=== PATIENT | male | born 1975 | race Caucasian/White ===

== ENCOUNTER → 2017-06-30 | Outpatient (REF) ==
[~2017-06-30] MED LIST: AVEED IM; CARDI-OMEGA1000 MG PO; CO Q-1010 MG PO; DEPO-TESTOS200 MG/ML IM; METFORMIN XR500 MG PO; MULTIPLE VITAMI1 CAP PO; NORCO 325 MG-7.1 TAB PO; NORTRIPTYLINE25 MG PO; OMEPRAZOLE D/R20 MG PO; PAMELOR 10MG10 MG PO; PAMELOR PO; PHENERGAN 25 TA25 MG; PHENTERMINE H37.5 M1 PO; PRILOSEC 20MG20 MG PO; PRINZIDE 12.5 M1 TAB PO; PROZAC10 M1 PO; TESTOSTERON200 MG/ML IM; TRAZODONE50 MG PO; TRILIPIX 135MG PO; VITAMIN D1000 IU PO; VYTORIN 10 MG-21 TAB PO; WELCHOL 625MG625 MG PO; ZITHROMAX Z PA250 MG PO; ZOCOR 20MG20 MG PO
== END ==
LOC: WSOH 16:30
DX: Z02.89 Encounter for other administrative examinations (principal)

== ENCOUNTER → 2017-07-13 | Outpatient (CLI) | payer OTHER | LOC: MHCPAIN 15:47 | DX: G89.29 Other chronic pain (principal); M47.22 Other spondylosis with radiculopathy, cervical region; R51 Headache | CPT/HCPCS: G0463 ==

== ENCOUNTER → 2017-07-15 | Outpatient (CLI) | payer OTHER | LOC: MHCPAIN 07:32 | DX: M50.323 Other cervical disc degeneration at C6-C7 level (principal); M48.02 Spinal stenosis, cervical region | CPT/HCPCS: J1100; Q9967 ==

== ENCOUNTER → 2017-07-26 | Outpatient (CLI) | payer OTHER | LOC: MHCPAIN 12:36 | DX: G89.29 Other chronic pain (principal); M50.123 Cervical disc disorder at C6-C7 level with radiculopathy | CPT/HCPCS: G0463 ==

== ENCOUNTER → 2018-07-06 | Outpatient (CLI) | payer OTHER | LOC: MHCPAIN 07:51 | DX: G89.29 Other chronic pain (principal); M50.90 Cervical disc disorder, unspecified, unspecified cervical region; M54.12 Radiculopathy, cervical region | CPT/HCPCS: G0463 ==

== ENCOUNTER → 2018-07-28 | Outpatient (CLI) | payer OTHER | LOC: MHCPAIN 15:20 | DX: M54.12 Radiculopathy, cervical region (principal); M50.90 Cervical disc disorder, unspecified, unspecified cervical region | CPT/HCPCS: J1100; J2250; J3010; Q9967 ==

== ENCOUNTER 2019-09-21 12:20 | Day surgery (SDC) | payer OTHER ==
[~2019-09-21] VITALS: Ht 170.3 cm; Wt 111.0 kg
[2019-09-21] VITALS (15 sets, daily range): BP systolic 110–146; BP diastolic 66–711; PULSE 82–104; TEMP 98.3
[~2019-09-21 12:20] MED LIST changes: -AVEED IM; +BRINTELLIX5; +DEPO-TESTOS200 MG/M1 IM; +FLEXERIL 1010 MG/TAB PO
--- NOTE | 2019-09-21 12:20 | NUR ---
Pt to EU 14 per ambulation for chest pain. Pt reports pain /10. Dr. Rae in room to assess pt. O2 2L per NC placed on pt for comfort.
[2019-09-21 12:56] LABS: MEAN CELL VOLUME 88 fl (80.0-100.0); MEAN CORPUSCULAR HGB CONC 35 g/dl (33.0-37.0); MEAN PLATELET VOLUME 8.5 fl (7.4-10.4); PLATELET COUNT 240 K/mm3 (130-400); RED BLOOD COUNT 6.15 M/mm3 (4.20-5.60); REDCELL DISTRIBUTION WIDTH-CV 14.1 % (11.5-14.5)
[2019-09-21 13:07] LABS: HEMATOCRIT 54.2 % (42.0-52.0); HEMOGLOBIN 19.2 g/dl (13.5-18.0); MEAN CORPUSCULAR HEMOGLOBIN 31 pg (27.0-31.0)
[2019-09-21 13:08] LABS: ANION GAP 11 mmol/L (7-16); BLOOD UREA NITROGEN 10 mg/dL (9-20); CALCIUM 9.3 mg/dL (8.4-10.2); CARBON DIOXIDE 28 mmol/L (22-30); CHLORIDE 101 mmol/L (98-107); CREATININE, serum 0.95 (0.66-1.25); GLUCOSE 92 mg/dL (74-106); SODIUM 139 mmol/L (137-145)
--- NOTE | 2019-09-21 13:20 | NUR ---
Pt reports chest pain relieved some with Oxygen. Pt reports chest pain 3/10.
[2019-09-21] MEDS ORDERED: PROZAC 10MG10 MG PO (13:21)
[2019-09-21] MEDS ORDERED: VITAMIN D31000 I1 PO (13:22)
[2019-09-21] MEDS ORDERED: NEURONTIN300 MG/CAP PO (13:24)
[2019-09-21 13:28] LABS: INR 0.9 (0.8-3.0); PROTHROMBIN TIME 10.8 SECONDS (9.7-12.8)
--- NOTE | 2019-09-21 13:50 | NUR ---
Pt reports chest pain came back when he walked to the bathroom. Reports pain 4/10.
[2019-09-21 14:13] LABS: TROPONIN-I < 0.012 ng/mL (0.000-0.035)
--- NOTE | 2019-09-21 14:54 | NUR ---
Pt chest pain increased to 5/10 with ambulation to bathroom. Nitro given.
--- NOTE | 2019-09-21 15:40 | NUR ---
Pt to labor service representative per bed for heart cath with Ivett Dudley RN.
--- NOTE | 2019-09-21 16:00 | NUR ---
SEE MERGE DOCUMENTATION FOR MEDICATION ADMINISTRATION TIMES AND INTRA/POST PROCEDURE SEDATION ASSESSMENTS. PLAN FOR RIGHT RADIAL ACCESS; BARBEAU TEST POSITIVE TO RIGHT HAND. MD TO ENTER H&P PRIOR TO CASE START.
--- NOTE | 2019-09-21 16:46 | NUR ---
Pt returned from procedure at this time.
--- NOTE | 2019-09-21 16:51 | NUR ---
Pt transferred back to express unit from cathlab, pt is awake and alert, p,w,d, TR band to rt wrist with 14 ml air instilled at approx 1640. cms intact distal, no hematoma or bleeding observed. pt with cardiac monitoring during recovery ... family at bs. heart healthy diet ordered.
--- NOTE | 2019-09-21 17:55 | NUR ---
1 CC REMOVED FROM TR BAND, NO BLEEDING OR HEMATOMA.
--- NOTE | 2019-09-21 19:15 | NUR ---
Radial compression band removed from R wrist cath site. Site remains soft, C/D/I, covered with bandaid and gauze and wrapped with coban. Pt has ambulated and ana PO intake s n/v. PIV removed with catheter intact.
--- NOTE | 2019-09-21 19:39 | NUR ---
Pt discharged per w/c by nurse with .
== END 2019-09-21 19:39 | disposition home or self-care (01) ==
LOC: COL.CAR 12:20
PROVIDERS: Internal Medicine Interventional Cardiology
DX: R07.9 Chest pain, unspecified (principal); R94.39 Abnormal result of other cardiovascular function study; Z90.49 Acquired absence of other specified parts of digestive tract; Z87.891 Personal history of nicotine dependence; Z88.5 Allergy status to narcotic agent
CPT/HCPCS: J1644; J2250; J3010; Q9967

== ENCOUNTER 2020-04-07 18:29 | Emergency (ER) | payer OTHER ==
[~2020-04-07] VITALS: Ht 170.2 cm; Wt 111.4 kg
[~2020-04-07 18:29] MED LIST changes: +NEURONTIN300 MG/CAP PO; +PROZAC 10MG10 MG PO; +VITAMIN D31000 I1 PO
[2020-04-07] MEDS ORDERED: CEPHALEXIN500 M1 PO (19:18)
[2020-04-07 19:29] VITALS: BP 154/74; PULSE 78; TEMP 97.8
== END 2020-04-07 19:24 | disposition home or self-care (01) ==
LOC: COL.ER 18:29
DX: S61.231A Puncture wound without foreign body of left index finger without damage to nail, initial encounter (principal); I10 Essential (primary) hypertension; Z23 Encounter for immunization; Z90.49 Acquired absence of other specified parts of digestive tract; Z88.6 Allergy status to analgesic agent; W26.0XXA Contact with knife, initial encounter

== ENCOUNTER → 2021-09-01 | Outpatient (CLI) | payer BC ==
[~2021-09-01] MED LIST changes: +CEPHALEXIN500 M1 PO
[2021-09-01 14:33] LABS: BASO % 0.6 % (0.0-2.0); EOS # 0.1 K/mm3 (0.0-0.7); EOS % 1.9 % (0-4.0); GRAN # 4.2 K/mm3 (1.4-6.5); GRAN % 60.9 % (42.2-75.2); LYMPH # 1.9 K/mm3 (1.2-3.4); LYMPH % 27.1 % (20.0-51.0); MEAN CELL VOLUME 89 fl (80.0-100.0); MEAN CORPUSCULAR HEMOGLOBIN 30 pg (27.0-31.0); MEAN CORPUSCULAR HGB CONC 33 g/dl (33.0-37.0); MONO # 0.7 K/mm3 (0.1-0.6); MONO % 9.4 % (1.7-9.3); PLATELET COUNT 227 K/mm3 (130-400); RED BLOOD COUNT 6.08 M/mm3 (4.20-5.60); REDCELL DISTRIBUTION WIDTH-CV 14.6 % (11.5-14.5)
[2021-09-01 14:35] LABS: HEMATOCRIT 54.1 % (42.0-52.0)
[2021-09-01 15:08] LABS: THYROID STIMULATING HORMONE 0.852 uIU/mL (0.350-4.940)
[2021-09-01 15:15] LABS: TROPONIN-I < 0.010 ng/mL (0.00-0.033)
[2021-09-01 15:23] LABS: ERYTHROCYTE SEDIMENTATION RATE 1 mm/hr (0-15)
[2021-09-01 15:53] LABS: C-REACTIVE PROTEIN 0.49 mg/dL (0.00-0.50)
== END ==
LOC: COL.LAB 13:35
PROVIDERS: Family Medicine
DX: T50.B95A Adverse effect of other viral vaccines, initial encounter (principal); I20.9 Angina pectoris, unspecified

== ENCOUNTER → 2021-09-02 | Outpatient (CLI) | payer BC | LOC: COL.LAB 08:12 | DX: T50.B9 Poisoning by, adverse effect of and underdosing of other viral vaccines (principal) ==

== ENCOUNTER 2021-10-08 22:43 | Day surgery (SDC) | payer BC ==
[~2021-10-08] VITALS: Ht 170.3 cm; Wt 112.7 kg
[2021-10-08 23:44] LABS: BASO # 0.1 K/mm3 (0.0-0.2); BASO % 0.5 % (0.0-2.0); EOS # 0.2 K/mm3 (0.0-0.7); EOS % 2.2 % (0.0-4.0); GRAN # 5.9 K/mm3 (1.4-6.5); GRAN % 63.9 % (42.2-75.2); HEMATOCRIT 51.2 % (42.0-52.0); HEMOGLOBIN 17.9 g/dl (13.5-18.0); LYMPH # 2.2 K/mm3 (1.2-3.4); LYMPH % 23.9 % (20.0-51.0); MEAN CELL VOLUME 85 fl (80.0-100.0); MEAN CORPUSCULAR HEMOGLOBIN 30 pg (27-31); MEAN CORPUSCULAR HGB CONC 35 g/dl (33.0-37.0); MONO # 0.8 K/mm3 (0.1-0.6); MONO % 8.6 % (1.7-9.3); PLATELET COUNT 299 K/mm3 (130-400); RED BLOOD COUNT 6.03 M/mm3 (4.20-5.60); REDCELL DISTRIBUTION WIDTH-CV 14.8 % (11.5-14.5)
[2021-10-09] VITALS (7 sets, daily range): BP systolic 115–134; BP diastolic 65–85; PULSE 69–89; TEMP 97.5–98.3
[2021-10-09 00:03] LABS: ALBUMIN 4.3 gm/dL (3.5-5.0); BILIRUBIN,TOTAL 1.1 mg/dL (0.2-1.2); C-REACTIVE PROTEIN 0.14 mg/dL (0.00-0.50); CALCIUM 9.4 mg/dL (8.4-10.2); CREATININE, serum 1.05 mg/dL (0.72-1.25); POTASSIUM 3.9 mmol/L (3.5-4.5); TOTAL PROTEIN 7.5 gm/dL (6.2-8.1)
[2021-10-09 01:11] LABS: COLLECTION METHOD CLEAN CATCH
[2021-10-09 01:24] LABS: BUDDING YEAST Present (NOT PRESENT); MUCOUS Present (NOT PRESENT); PH 6 (5-8); SQUAMOUS EPITHELIAL None Seen /hpf (0-10); URINE APPEARANCE Cloudy (CLEAR/HAZY); URINE BACTERIA None Seen /hpf (NONE SEEN); URINE BILIRUBIN Negative (NEGATIVE); URINE BLOOD 3+ (NEGATIVE); URINE CALCIUM OXALATE CRYSTAL Present (NOT PRESENT); URINE COLOR Amber (YELLOW); URINE GLUCOSE 1+ (NEGATIVE); URINE KETONE Trace (NEGATIVE); URINE LEUKOCYTE ESTERASE Negative (NEGATIVE); URINE NITRATE Positive (NEGATIVE); URINE PROTEIN(semi-quant) 2+ (NEGATIVE); URINE RBC >50 /hpf (0-2); URINE UROBILINOGEN Negative (NEGATIVE)
--- NOTE | 2021-10-09 10:12 | NUR ---
Ice Seller met with patient and patient's , Addie (ph#[phone]) to discuss discharge planning. Patient lives in [place] with his and sees Dr. Arnaldo Hook for primary care. Patient obtains medications from [facility] with no difficulties. Patient uses a CPAP and no other DME and also reports independence with all ADLS. Patient advised he believes he completed a DPOA-HC designating his parents when he got , but plans to re-do one now that he is to his current . Patient plans to return home upon discharge.
[2021-10-09] MEDS ORDERED: PRINZIDE 25 MG-1 TAB PO (10:43)
[2021-10-09] MEDS ORDERED: FLEXERIL 1010 MG/TAB PO (10:43)
[2021-10-09] MEDS ORDERED: GLUCOPHAGE500 MG/TAB PO (10:44)
[2021-10-09] MEDS ORDERED: MULTI VITAMINS1 TAB PO (10:45)
[2021-10-09] MEDS ORDERED: THE MEDICINE S200 M2 PO (10:45)
[2021-10-09] MEDS ORDERED: PHARMASSURE CHE30 MG PO (10:47)
[2021-10-09] MEDS ORDERED: OMEGA-3 1000 MG1 CAP PO (10:47)
[2021-10-09] MEDS ORDERED: VITAMIN D31000 I1 PO (10:48)
[2021-10-09] MEDS ORDERED: NORCO 325 MG-51 TAB PO (18:14)
--- NOTE | 2021-10-09 18:45 | NUR ---
RECEIVED REPORT FROM THIRD HAND, JEWELS. WAITING FOR PATIENT ARRIVAL TO ROOM 332 POST OP ADMIT, ANTICIPATE HOME IF CRITERIA MET FOR POST OP RECOVERY.
--- NOTE | 2021-10-09 19:00 | NUR ---
PATIENT ARRIVED TO ROOM 332, IMMEDIATELY VOIDING IN BATHROOM. ALREADY IN ROOM WAITING FOR PATIENT TO ARRIVE POST OP. PATIENT UP AMB WITH NO REPORTED COMPLAINTS OR NEEDS CURRENTLY. REPORTS FEELS BETTER AFTER VOIDING LARGE AMOUNT DULL RED TINGED URINE, NO CLOTS OBSERVED. DENIES NAUSEA AT THIS TIME.
--- NOTE | 2021-10-09 20:50 | NUR ---
REVIEWED DISCHARGE INSTRUCTIONS WITH NO FURTHER QUESTIONS OR CONCERNS FROM EITHER PATIENT OR SPOUSE.
[2021-10-12] MEDS ORDERED: FLOMAX 0.40.4 MG/CAP PO (13:18)
[2021-10-12] MEDS ORDERED: PYRIDIUM 100MG100 MG PO (13:19)
[2021-10-12] MEDS ORDERED: NORCO 325 MG-51 TAB PO (13:19)
== END 2021-10-09 21:00 | disposition home or self-care (01) ==
LOC: COL.ER 22:43 → SDCO 10-09 11:29 → SURG 10-09 19:18 → SDCO 10-09 21:00
PROVIDERS: Physician Assistant
DX: N20.1 Calculus of ureter (principal); I10 Essential (primary) hypertension; E78.5 Hyperlipidemia, unspecified; G47.33 Obstructive sleep apnea (adult) (pediatric); Z79.899 Other long term (current) drug therapy
CPT/HCPCS: OP; C1769; C1894; J0696; J1100; J1170; J1885; J1940; J2405; J2704; J3010; J7030; Q9967

== ENCOUNTER → 2021-10-24 | Outpatient (CLI) | payer BC ==
[~2021-10-24] MED LIST changes: +FLOMAX 0.40.4 MG/CAP PO; +GLUCOPHAGE500 MG/TAB PO; +MULTI VITAMINS1 TAB PO; +NORCO 325 MG-51 TAB PO; +OMEGA-3 1000 MG1 CAP PO; +PHARMASSURE CHE30 MG PO; +PRINZIDE 25 MG-1 TAB PO; +PYRIDIUM 100MG100 MG PO; +THE MEDICINE S200 M2 PO
== END ==
LOC: COL.RAD 07:29
DX: N20.0 Calculus of kidney (principal); N13.5 Crossing vessel and stricture of ureter without hydronephrosis
CPT/HCPCS: Q9967

== ENCOUNTER 2022-03-11 22:15 | Emergency (ER) | payer BC ==
[~2022-03-11] VITALS: Ht 170.2 cm; Wt 111.4 kg
[2022-03-12 01:20] VITALS: BP 111/67; PULSE 93; TEMP 98.9
[2022-03-12 03:54] LABS: ALBUMIN 3.4 gm/dL (3.5-5.0); BASO % 0.4 % (0.0-2.0); BILIRUBIN,TOTAL 0.5 mg/dL (0.2-1.2); C-REACTIVE PROTEIN 1.2 mg/dL (0.00-0.50); CALCIUM 8.1 mg/dL (8.4-10.2); CREATININE, serum 0.93 mg/dL (0.72-1.25); EOS # 0.3 K/mm3 (0.0-0.7); EOS % 3.4 % (0.0-4.0); GRAN # 4.9 K/mm3 (1.4-6.5); GRAN % 61.3 % (42.2-75.2); HEMATOCRIT 49.6 % (42.0-52.0); HEMOGLOBIN 16.5 g/dl (13.5-18.0); LYMPH # 1.9 K/mm3 (1.2-3.4); LYMPH % 23.5 % (20.0-51.0); MEAN CELL VOLUME 89 fl (80.0-100.0); MEAN CORPUSCULAR HEMOGLOBIN 30 pg (27-31); MEAN CORPUSCULAR HGB CONC 33 g/dl (33.0-37.0); MEAN PLATELET VOLUME 9.1 fl (7.4-10.4); MONO # 0.9 K/mm3 (0.1-0.6); MONO % 11.2 % (1.7-9.3); PLATELET COUNT 211 K/mm3 (130-400); POTASSIUM 3.5 mmol/L (3.5-4.5); RED BLOOD COUNT 5.55 M/mm3 (4.20-5.60); REDCELL DISTRIBUTION WIDTH-CV 13.7 % (11.5-14.5); TOTAL PROTEIN 6.9 gm/dL (6.2-8.1)
== END 2022-03-12 01:20 | disposition home or self-care (01) ==
LOC: COL.ER 22:15
PROVIDERS: Emergency Medicine
DX: L02.212 Cutaneous abscess of back [any part, except buttock and flank] (principal); U07.1 COVID-19; Z73.0 Burn-out; R00.0 Tachycardia, unspecified; E66.9 Obesity, unspecified; Z68.38 Body mass index [BMI] 38.0-38.9, adult
CPT/HCPCS: J0696; J1885; J3010; J7030

== ENCOUNTER 2023-10-15 13:00 | Inpatient (IN) | payer OTHER ==
[~2023-10-15] VITALS: Ht 170.2 cm; Wt 115.0 kg
[2023-10-15 13:00] VITALS: BP_SYST 132
[~2023-10-15 13:00] MED LIST changes: +ATIVAN 1MG T1 MG/TAB PO; +CIALIS2.5 MG PO; +DELATESTRYL200 MG/ML IM; +INDERAL 20MG20 MG PO; +JARDIANCE25 PO; +LOVAZA1 GM PO; +NEURONTIN100 MG/CAP PO; +PHARMASSURE ZIN50 MG PO; +PHENERGAN 25 TA25 MG PO; +PRINZIDE 12.5 M1 TA1 PO; +REQUIP2 MG PO; +TRILIPIX45 MG PO
[2023-10-15] MEDS ORDERED: Ondansetron 4 MG/2 ML VIAL IV ONE (14:15)
[2023-10-15] MEDS ORDERED: HYDROmorphone 0.5 MG/0.5 ML SYRINGE IV ONE ×2 (14:15→15:15)
[2023-10-15 14:32] LABS: BASO # 0.1 K/mm3 (0.0-0.2); BASO % 0.4 % (0.0-2.0); EOS # 0.2 K/mm3 (0.0-0.7); EOS % 1.6 % (0.0-4.0); GRAN % 78.6 % (42.2-75.2); LYMPH # 1.1 K/mm3 (1.2-3.4); LYMPH % 9.5 % (20.0-51.0); MEAN CELL VOLUME 87 fl (80.0-100.0); MEAN CORPUSCULAR HGB CONC 36 g/dl (33.0-37.0); MEAN PLATELET VOLUME 8.9 fl (7.4-10.4); MONO # 1.1 K/mm3 (0.1-0.6); MONO % 9.5 % (1.7-9.3); PLATELET COUNT 261 K/mm3 (130-400); RED BLOOD COUNT 6.11 M/mm3 (4.20-5.60); REDCELL DISTRIBUTION WIDTH-CV 15.9 % (11.5-14.5)
[2023-10-15 14:34] LABS: HEMATOCRIT 53.3 % (42.0-52.0); HEMOGLOBIN 19.1 g/dl (13.5-18.0); MEAN CORPUSCULAR HEMOGLOBIN 31 pg (27-31)
[2023-10-15 14:48] LABS: ALBUMIN 4.4 gm/dL (3.5-5.0); BILIRUBIN,TOTAL 1.3 mg/dL (0.2-1.2); CALCIUM 9.8 mg/dL (8.4-10.2); CREATININE, serum 0.91 mg/dL (0.72-1.25); POTASSIUM 3.5 mmol/L (3.5-4.5); TOTAL PROTEIN 7.6 gm/dL (6.2-8.1)
[2023-10-15 16:00] VITALS: BP 135/73; PULSE 113; TEMP 98.3
--- NOTE | 2023-10-15 16:25 | NUR ---
pt admitted to room from ED. pt a&ox3 resting in bed. vss. NG tube to intermittent suction. med rec and admission assessment complete. pt reports some abdominal pain and nausea. INT to right hand patent. pt denies needs at this time. call light in reach.
[2023-10-15 17:13] VITALS: BP_SYST 132
[2023-10-15] MEDS ORDERED: Promethazine 25 MG in NS 50 ML IV PRN (17:45)
[2023-10-15] MEDS ORDERED: HYDROmorphone 0.5 MG/0.5 ML SYRINGE IV PRN (17:45)
[2023-10-15] MEDS ORDERED: Ondansetron 4 MG/2 ML VIAL IV PRN (17:45)
[2023-10-15] MEDS ORDERED: LORazepam 2 MG/ML 1 ML VIAL IV PRN (17:45)
[2023-10-15] MEDS ORDERED: 1/2 NS & 20 mEq KCl 1,000 ML IV SCH (18:00)
[2023-10-15 20:00] VITALS: BP 115/76; PULSE 108; TEMP 97.8
[2023-10-15 21:00] VITALS: BP_SYST 115
--- NOTE | 2023-10-15 21:30 | NUR ---
Patient reports his NG TUBE doesn't seem to work, this nurse checked the suction, changed the valve/port connecting to the suction tube but patient still complained and no gastric drainage coming out of the tube, informed charge nurse, charge nurse at bedside, we flushed the tube and gastric contents started coming out, will continue to monitor. Patient also complained of pain and nausea, medicated with IV phenergan and dilaudid, assessed at this time, call light and personal items within reach, will continue to monitor.
[2023-10-15 23:37] VITALS: BP 143/85; PULSE 100; TEMP 97.7
--- NOTE | 2023-10-15 23:49 | NUR ---
Oxygen at 2LPM at this time d/t his NG tube, patient normally uses CPAP at home.
[2023-10-16] VITALS (11 sets, daily range): BP systolic 107–143; BP diastolic 66–86; PULSE 90–93; TEMP 97.9–98.5
--- NOTE | 2023-10-16 01:09 | NUR ---
Patient complained of pain, PS of 8/10, medicated with dilaudid, ice chips given.
--- NOTE | 2023-10-16 03:45 | NUR ---
Patient called with complains of abdominal pain, PS of 8/10, medicated with dilaudid, NG tube still to LIS.
[2023-10-16 08:28] LABS: HEMATOCRIT 47.8 % (42.0-52.0); MEAN CELL VOLUME 89 fl (80.0-100.0); MEAN CORPUSCULAR HEMOGLOBIN 31 pg (27-31); MEAN CORPUSCULAR HGB CONC 35 g/dl (33.0-37.0); MEAN PLATELET VOLUME 9.1 fl (7.4-10.4); PLATELET COUNT 217 K/mm3 (130-400); RED BLOOD COUNT 5.37 M/mm3 (4.20-5.60); REDCELL DISTRIBUTION WIDTH-CV 15.9 % (11.5-14.5)
[2023-10-16 08:43] LABS: HEMOGLOBIN 16.7 g/dl (13.5-18.0)
[2023-10-16 08:53] LABS: CALCIUM 8.4 mg/dL (8.4-10.2); CREATININE, serum 0.85 mg/dL (0.72-1.25); MAGNESIUM 1.7 mg/dL (1.6-2.6); POTASSIUM 3.4 mmol/L (3.5-4.5)
[2023-10-16 09:20] LABS: ANISOCYTOSIS 1+; BAND 20 % (0-10); BASOPHIL 1 % (0-2); EOSINOPHIL 6 % (0-4); LYMPHOCYTE 36 % (20.0-51.0); METAMYELOCYTE 3 % (0-0); NEUTROPHILS 14 % (42.0-75.2); PLATELET ESTIMATE NORMAL (NORMAL)
--- NOTE | 2023-10-16 11:29 | NUR ---
SW met with patient to complete to complete intake. Patient provides he lives in [place] with spouse Maritza Drake [phone]. Patient provides he does not utilize DME, is independent with ADL's, and does not utilize home health services at this time. PCP is Dr. Hook, and pharmacy is [facility]. Patient provides parents have been appointment as DPOA/HC, and plans to return to his home upon dc. SCARLETT will continue to follow. DC plan per patient: home
--- NOTE | 2023-10-16 13:17 | NUR ---
Data: Mounter Clarinets visit offered to Patient during [facility] rounds. Assessment: Patient has a nasal drainage tube. He declined the M[facility] visit with some mention of the tube. Plan of Care: Chaplains will remain available as needed/requested while Patient is admitted to this hospital.
--- NOTE | 2023-10-16 19:10 | NUR ---
Patient called with c/o pain and nausea, PS of 7/10, medicated with dilaudid and zofran, assessed at this time, remains on NPO, still on NG tube to LIS, denies further needs, call light and personal items within reach, will continue to monitor.
[2023-10-17] VITALS (12 sets, daily range): BP systolic 121–158; BP diastolic 54–82; PULSE 78–90; TEMP 97.6–99.1
--- NOTE | 2023-10-17 07:35 | NUR ---
PATIENT SITTING UP IN BED. ALERT AND ORIENTED. NG ON LOW INT SUCTION. BROWN DRAINAGE NOTED IN CANISTER. HYPOACTIVE BOWEL SOUNDS NOTED. PATIENT STATES HE HAS BEEN PASSING FLATUS. PATIENT DENIES PAIN OR DISCOMFORT. PATIENT STATES HE WOULD LIKE TO TRY DRINKING APPLE JUICE AFTER SEEING DR. GABRIELLE CHU WITHIN REACH. DENIES FURTHER NEEDS OR CONCERNS AT THIS TIME.
[2023-10-17] MEDS ORDERED: HYDROmorphone 0.5 MG/0.5 ML SYRINGE IV PRN (10:15)
--- NOTE | 2023-10-17 12:10 | NUR ---
c/o pain 04/19, medicated wtih dilaudid 0.25mg slow IV, also c/o nausea and medicated with zofran 4mg slow IV, suction cannister changed and patient hooked his NG to tubing and suction to LIS, will monitor output from NG
--- NOTE | 2023-10-17 12:45 | NUR ---
PATIENT NG CONNECTED TO LOW INT SUCTION AT THIS TIME. NG HAS BEEN CLAMPED SINCE 0800 THIS AM.
--- NOTE | 2023-10-17 18:05 | NUR ---
PATIENT RESTING IN BED. NG IS CONNECTED TO LOW INT SUCTIONING. 700 ML OF DARK BROWN DRAINAGE NOTED IN CANISTER. PATIENT DENIES FURTHER NEEDS OR CONCERNS AT THIS TIME.
--- NOTE | 2023-10-17 22:03 | NUR ---
Patient complained of pain on his abdomen and nausea, PS of 7/10, IV dilaudid and phenergan given, still with NG tube to LIS draining coffee ground drainage, remains on NPO, IV infusing well on right hand, denies further needs, call light and personal items within reach, will continue to monitor.
[2023-10-18] VITALS (13 sets, daily range): BP systolic 133–152; BP diastolic 78–92; PULSE 74–92; TEMP 97.4–98.6
[2023-10-18 06:45] LABS: BASO % 0.4 % (0.0-2.0); EOS # 0.2 K/mm3 (0.0-0.7); EOS % 3.1 % (0.0-4.0); GRAN # 4.6 K/mm3 (1.4-6.5); GRAN % 60.3 % (42.2-75.2); HEMATOCRIT 45.6 % (42.0-52.0); HEMOGLOBIN 16.1 g/dl (13.5-18.0); LYMPH # 1.7 K/mm3 (1.2-3.4); LYMPH % 22.7 % (20.0-51.0); MEAN CELL VOLUME 88 fl (80.0-100.0); MEAN CORPUSCULAR HEMOGLOBIN 31 pg (27-31); MEAN CORPUSCULAR HGB CONC 35 g/dl (33.0-37.0); MEAN PLATELET VOLUME 8.4 fl (7.4-10.4); MONO % 12.7 % (1.7-9.3); PLATELET COUNT 209 K/mm3 (130-400); REDCELL DISTRIBUTION WIDTH-CV 14.8 % (11.5-14.5)
[2023-10-18 07:06] LABS: ALBUMIN 3.4 gm/dL (3.5-5.0); CALCIUM 8.6 mg/dL (8.4-10.2); CREATININE, serum 0.84 mg/dL (0.72-1.25); MAGNESIUM 1.8 mg/dL (1.6-2.6); PHOSPHOROUS 1.9 mg/dL (2.3-4.7); POTASSIUM 3.7 mmol/L (3.5-4.5)
--- NOTE | 2023-10-18 09:00 | NUR ---
Pt doing okay this morning. He has been getting up independently in his room. He did have a decent amount of output from his NG tube. Pt reports otherwise feeling okay, minimal to no pain. Bowel sounds are hypoactive to absent. Abd is soft at this time. No needs, call light within reach
[2023-10-18] MEDS ORDERED: Potassium Phoshate 20 MM in NS 250 ML For P Level 1.5-1.9 IV ONE ×2 (09:15→10:30)
--- NOTE | 2023-10-18 13:00 | NUR ---
Pt continues to do okay. NG has remained to LIS. Pt has been getting up and walking independently. Pt denies any needs
--- NOTE | 2023-10-18 16:00 | NUR ---
NG has been clamped for a while, so far pt doing okay. He is taking in some clear liquids. He is aware that if he feels bloated or nauesated to notify nursing so that suction can be hooked back up. No other needs
--- NOTE | 2023-10-18 19:09 | NUR ---
report received from tawana palmer. pt resting in bed with ng clamped. pt reports some distension but wants to go for a walk. pt denies pain. call light in reach. all needs met at this time.
--- NOTE | 2023-10-18 21:22 | NUR ---
shift assessment complete, see documentation. pt resting in bed and planning to walk the unit. pt reports some abd discomfort and bloating. pt ng tube remains clamped. pt reports some nausea but does not want to take zofran. phenergen has not been restocked and pt is aware. pt now walking to attempt to decrease bloating. call light in reach. all needs met at this time.
--- NOTE | 2023-10-18 22:08 | NUR ---
pt continues to have increased distention and pain to the abdomen. pt requested increase in dilaudid dose. called hany israel. new order for 0.5mg dilaudid iv inj q2h prn. engineering model maker also requested i inform collection systems worker doctor incase they request new imaging. called collection systems worker dr pena. new order for kub & upright in AM. pt now hooked back up to LIS for NG tube. call light in reach. all needs met at this time.
[2023-10-18] MEDS ORDERED: HYDROmorphone 0.5 MG/0.5 ML SYRINGE IV PRN (22:15)
--- NOTE | 2023-10-18 22:20 | NUR ---
pt requesting prn dilaudid for 8/10 abd pain. prn administered per orders. pt also requesting prn zofran for nausea. prn administered per orders. pt resting in bed watching tv. call light in reach. all needs met at this time.
[2023-10-19] VITALS (12 sets, daily range): BP systolic 129–148; BP diastolic 75–93; PULSE 73–84; TEMP 97.7–98.4
--- NOTE | 2023-10-19 00:44 | NUR ---
pt denies nausea now. pt reporting 7/10 abd pain and requesting prn pain medication to attempt to sleep. prn dilaudid administered per orders. call light in reach. all needs met at this time.
[2023-10-19 06:19] LABS: BASO # 0.1 K/mm3 (0.0-0.2); BASO % 0.7 % (0.0-2.0); EOS # 0.3 K/mm3 (0.0-0.7); EOS % 4.1 % (0.0-4.0); HEMATOCRIT 47.5 % (42.0-52.0); HEMOGLOBIN 16.6 g/dl (13.5-18.0); LYMPH # 2.2 K/mm3 (1.2-3.4); LYMPH % 29.5 % (20.0-51.0); MEAN CELL VOLUME 88 fl (80.0-100.0); MEAN CORPUSCULAR HEMOGLOBIN 31 pg (27-31); MEAN CORPUSCULAR HGB CONC 35 g/dl (33.0-37.0); MEAN PLATELET VOLUME 8.7 fl (7.4-10.4); MONO # 0.9 K/mm3 (0.1-0.6); MONO % 11.5 % (1.7-9.3); PLATELET COUNT 226 K/mm3 (130-400); RED BLOOD COUNT 5.43 M/mm3 (4.20-5.60); REDCELL DISTRIBUTION WIDTH-CV 14.9 % (11.5-14.5)
[2023-10-19 06:43] LABS: ALBUMIN 3.6 gm/dL (3.5-5.0); CREATININE, serum 0.88 mg/dL (0.72-1.25); MAGNESIUM 1.8 mg/dL (1.6-2.6); PHOSPHOROUS 2.9 mg/dL (2.3-4.7); POTASSIUM 3.9 mmol/L (3.5-4.5)
--- NOTE | 2023-10-19 09:13 | NUR ---
PT RESTING IN BED WITH PAIN 7/10 IN ABDOMEN. PAIN MEDICATION PROVIDED. PT WITH STEADY GAIT TO BATHROOM. PT REMAINS NPO AND NG TO LIS. WILL CONTINUE TO MONITOR.
--- NOTE | 2023-10-19 19:20 | NUR ---
report received from tawana palmer. pt resting in bed watching tv. pt denies pain or distention to abd. call light in reach. all needs met at this time.
--- NOTE | 2023-10-19 22:16 | NUR ---
shift assessment complete, see documentation. pt reports feeling better today than yesterday. pt ng clamped and pt not feeling abd distention yet. abd feels soft but still hypoactive of bowel sounds. pt walking the unit with steady gait. pt denies pain or nausea. call light in reach. all needs met at this time.
[2023-10-20] VITALS (16 sets, daily range): BP systolic 134–144; BP diastolic 64–83; PULSE 63–81; TEMP 97.5–98.2
--- NOTE | 2023-10-20 00:22 | NUR ---
pt now reporting increased distention and nausea. prn zofran administered per orders at 2251 without relief. prn phenergen administered per orders at 0018. ng still clamped. educated patient on importance of decompression, pt aware. call light in reach. all needs met at this time.
--- NOTE | 2023-10-20 03:20 | NUR ---
pt reporting 7/10 abd pain. pt hooked back up to LIWS for NG tube. 400ml out for NG. pt stating he feels somewhat better but requesting prn. prn dilaudid administered per orders. call light in reach. all needs met at this time.
--- NOTE | 2023-10-20 05:53 | NUR ---
pt reporting increased abd pain. prn dilaudid administered per orders. call light in reach. all needs met at this time.
[2023-10-20 07:43] LABS: HEMOGLOBIN 16.4 g/dl (13.5-18.0); MEAN CELL VOLUME 89 fl (80.0-100.0); MEAN CORPUSCULAR HEMOGLOBIN 30 pg (27-31); MEAN CORPUSCULAR HGB CONC 34 g/dl (33.0-37.0); MEAN PLATELET VOLUME 8.6 fl (7.4-10.4); PLATELET COUNT 244 K/mm3 (130-400); RED BLOOD COUNT 5.41 M/mm3 (4.20-5.60); REDCELL DISTRIBUTION WIDTH-CV 14.6 % (11.5-14.5)
[2023-10-20 07:59] LABS: ALBUMIN 3.6 gm/dL (3.5-5.0); CREATININE, serum 0.86 mg/dL (0.72-1.25); MAGNESIUM 1.7 mg/dL (1.6-2.6); PHOSPHOROUS 3.2 mg/dL (2.3-4.7)
--- NOTE | 2023-10-20 08:00 | NUR ---
PATIENT IS A&O. VSS. DENIES PAIN. C/O NAUSEA, NO EMESIS BUT REQUESTING PRN IV ZOFRAN, GIVEN. NG TO LIS WITH LARGE AMOUNTS OF BROWN DRAINAGE. NOTED 700CC OF NG DRAINAGE SINCE CANISTER LAST CHANGED ON HOSPITALITY AMBASSADOR. ABD IS DISTENDED, SOFT AND WITH POSITIVE BOWL SOUNDS. PATIENT DENIES FLATUS. PATIENT ALSO REPORTS FAILY CLAMPING TRIAL LAST NIGHT AND REPORTS HE AND DISCUSSED POSSIBLE SURGERY TODAY. IV FLUIDS INFUSING VIA PUMP INTO RIGHT HAND. SCD'S TO BLE. HEAD TO TOE ASSESSMENT COMPLETE. INDEPENDENT IN ROOM. CALL LIGHT IN REACH. NO OTHER NEEDS AT THIS TIME.
[2023-10-20 09:07] LABS: BAND 5 % (0-10); EOSINOPHIL 3 % (0-4); LYMPHOCYTE 24 % (20.0-51.0); NEUTROPHILS 63 % (42.0-75.2); PLATELET ESTIMATE NORMAL (NORMAL)
--- NOTE | 2023-10-20 11:30 | NUR ---
PATIENT'S NG AT 1,000 AND WAS LAST CHANGED BY WIRE SAW OPERATOR AT APPROX 0100. CHANGE NG CANISTER AND BACK TO LIS.
[2023-10-20] MEDS ORDERED: fentaNYL 50 MCG/ML 5 ML VIAL ONE ×2 (14:12→16:33)
[2023-10-20] MEDS ORDERED: Rocuronium 50 MG/5 ML Multi-Dose VIAL ONE ×2 (14:12→15:44)
[2023-10-20] MEDS ORDERED: Succinylcholine PF 100 MG/5 ML SYRINGE/POLY AMP IV ONE (14:12)
[2023-10-20] MEDS ORDERED: NS 10 ML IV ONE (14:13)
[2023-10-20] MEDS ORDERED: Ketorolac 30 MG/ML VIAL ONE (14:14)
[2023-10-20] MEDS ORDERED: Ondansetron 4 MG/2 ML VIAL ONE (14:14)
[2023-10-20] MEDS ORDERED: dexAMETHasone 10 MG/ML VIAL ONE (14:14)
--- NOTE | 2023-10-20 14:25 | NUR ---
PATIENT GOING DOWN TO OR VIA BED. AT BEDSIDE. NG CLAMPED. CONSENT ON CHART. PATIENT OFF FLOOR.
[2023-10-20] MEDS ORDERED: Topical Skin Adhesive 1 EACH (1 ML) TOP ONE (15:07)
[2023-10-20] MEDS ORDERED: Indocyanine Green 25 MG KIT IV ONE (16:50)
[2023-10-20] MEDS ORDERED: 1/2 NS & 20 mEq KCl 1,000 ML IV SCH (17:30)
--- NOTE | 2023-10-20 17:45 | NUR ---
PATIENT BACK IN ROOM 327. A&O. VSS. FAMILY AT BEDSIDE. NO COMPLAINTS. NG TO LIS WITH DARK BROWN GASTRIC DRAINAGE NOTED. ABD LAP SITES X5. NO NEEDS AT THIS TIME. CALL LIGHT IN REACH.
--- NOTE | 2023-10-20 20:01 | NUR ---
PT ON POST OP VS, WEARING OXYGEN AT 3L/NC, USES CPAP AT HOME. REPORTS PAIN TO ABD, DILAUDID GIVEN.
--- NOTE | 2023-10-20 22:38 | NUR ---
PT REPORTS PASSING SMALL FLATUS. HAS BEEN OUT OF BED, VOIDING WITHOUT PROBLEM. HAS IVF TO LFA INFUSING WITHOUT PROBLEM. ROBOTIC SITES TO ABD X5, GLUED AND DRY. NGT TO LIS WITH BROWN LIQUID RETURN. DILAUDID GIVEN AT THIS TIME.
[2023-10-21] VITALS (13 sets, daily range): BP systolic 126–131; BP diastolic 68–83; PULSE 71–90; TEMP 97.6–98.1
--- NOTE | 2023-10-21 00:30 | NUR ---
MEDICATED WITH DILAUDID 0.5MG IVP FOR PAIN TO ABD. SCDS ON.
--- NOTE | 2023-10-21 02:55 | NUR ---
PT HAVING RESTLESS LEGS, ATIVAN 1MG IVP GIVEN PER DR ORDER.
--- NOTE | 2023-10-21 06:00 | NUR ---
PT RESTING WELL AFTER ATIVAN. NGT WITH 550CC OUT THIS SHIFT.
[2023-10-21 06:56] LABS: BASO % 0.2 % (0.0-2.0); GRAN # 9.5 K/mm3 (1.4-6.5); GRAN % 81.8 % (42.2-75.2); HEMATOCRIT 47.7 % (42.0-52.0); HEMOGLOBIN 16.5 g/dl (13.5-18.0); LYMPH # 1.3 K/mm3 (1.2-3.4); MEAN CELL VOLUME 87 fl (80.0-100.0); MEAN CORPUSCULAR HEMOGLOBIN 30 pg (27-31); MEAN CORPUSCULAR HGB CONC 35 g/dl (33.0-37.0); MEAN PLATELET VOLUME 8.6 fl (7.4-10.4); MONO # 0.7 K/mm3 (0.1-0.6); MONO % 6.1 % (1.7-9.3); PLATELET COUNT 267 K/mm3 (130-400); RED BLOOD COUNT 5.46 M/mm3 (4.20-5.60); REDCELL DISTRIBUTION WIDTH-CV 14.3 % (11.5-14.5)
[2023-10-21 07:11] LABS: ALBUMIN 3.5 gm/dL (3.5-5.0); CALCIUM 9.2 mg/dL (8.4-10.2); CREATININE, serum 0.93 mg/dL (0.72-1.25); MAGNESIUM 1.8 mg/dL (1.6-2.6); PHOSPHOROUS 3.4 mg/dL (2.3-4.7); POTASSIUM 4.1 mmol/L (3.5-4.5)
--- NOTE | 2023-10-21 08:55 | NUR ---
PT WALKING THE HALLS WITH STEADY GAIT AND PAIN 04/19. PAIN MEDICATIONS PROVIDED PER EMAR. PT PASSING GAS, NO N/V, PT STARTED ON CLEAR LIQUID DIET, TOLERTING WELL AT THIS TIME. WILL CONTINUE TO MONITOR.
--- NOTE | 2023-10-21 14:34 | NUR ---
PT TOLERATING CLEAR LIQUID DEIT WELL WITH NG TUBE CLAMPED FOR 6 HOURS. NG TUBE REMOVED AT THIS TIME WITH NO ISSUES PER ORDERS. WILL CONTINUE TO MONITOR.
--- NOTE | 2023-10-21 17:36 | NUR ---
DR. CRISTINA CALLED TO UPDATE ON PT STATUS, ORDERS TO ADVANCE DIET TOLERATED.
--- NOTE | 2023-10-21 19:50 | NUR ---
PT AMBULATING IN HALLS WITHOUT PROBLEM. HAS HAD LARGE LOOSE STOOL. ASKING FOR NORCO FOR ABD PAIN, GIVEN AT THIS TIME. IVF TO LFA INFUSING WITHOUT PROBLEM.
--- NOTE | 2023-10-21 23:24 | NUR ---
ATIVAN 1MG IVP FOR RESTLESS LEGS GIVEN PER PT REQUEST. CPAP ON.
[2023-10-22 00:45] VITALS: BP_SYST 127
--- NOTE | 2023-10-22 04:00 | NUR ---
PT RESTING WELL WITH CPAP ON.
[2023-10-22 04:07] VITALS: BP 132/82; PULSE 74; TEMP 97.8
[2023-10-22 04:41] VITALS: BP_SYST 132
[2023-10-22 05:40] LABS: BASO # 0.1 K/mm3 (0.0-0.2); BASO % 0.6 % (0.0-2.0); EOS # 0.5 K/mm3 (0.0-0.7); EOS % 5.7 % (0.0-4.0); GRAN # 4.5 K/mm3 (1.4-6.5); GRAN % 51.4 % (42.2-75.2); HEMATOCRIT 47.2 % (42.0-52.0); HEMOGLOBIN 16.2 g/dl (13.5-18.0); LYMPH # 2.9 K/mm3 (1.2-3.4); LYMPH % 32.6 % (20.0-51.0); MEAN CELL VOLUME 89 fl (80.0-100.0); MEAN CORPUSCULAR HEMOGLOBIN 31 pg (27-31); MEAN CORPUSCULAR HGB CONC 34 g/dl (33.0-37.0); MEAN PLATELET VOLUME 8.8 fl (7.4-10.4); MONO # 0.8 K/mm3 (0.1-0.6); MONO % 8.5 % (1.7-9.3); PLATELET COUNT 266 K/mm3 (130-400); RED BLOOD COUNT 5.32 M/mm3 (4.20-5.60); REDCELL DISTRIBUTION WIDTH-CV 14.6 % (11.5-14.5)
[2023-10-22 06:32] LABS: ALBUMIN 3.5 gm/dL (3.5-5.0); CALCIUM 9.2 mg/dL (8.4-10.2); CREATININE, serum 0.89 mg/dL (0.72-1.25); MAGNESIUM 1.8 mg/dL (1.6-2.6); PHOSPHOROUS 3.2 mg/dL (2.3-4.7); POTASSIUM 3.9 mmol/L (3.5-4.5)
[2023-10-22 07:32] VITALS: BP 131/81; PULSE 72; TEMP 97.9
[2023-10-22 07:49] VITALS: BP_SYST 131
--- NOTE | 2023-10-22 07:50 | NUR ---
PT RESTING IN BED WITH SLIGHT TENDERNESS IN ABDOMEN. LAP SITES WELL APPROX, NO SIGNS OF INFECTION. STEADY GAIT TO BATHROOM. PT TOLERATING FULL LIQUID DIET THROUGH THE NIGHT AND PLANS TO ADVANCE TO GENERAL DEIT AT BREAKFAST. WILL CONTINUE TO MONITOR.
--- NOTE | 2023-10-22 10:44 | NUR ---
DISCHARGE INTRUCTIONS PROVIDED FOR PT AT THIS TIME. DISCUSSED FOLLOW UP APPOITMENTS, NEW MEDICATIONS, AND SIGNS OF INFECTION. IV REMOVED. PT AND BELONGINGS ESCORTED OUT OF BUILDING AT THIS TIME.
== END 2023-10-22 10:40 | disposition home or self-care (01) | DRG 327 ==
LOC: COL.ER 13:00 → SURG 15:19
PROVIDERS: Emergency Medicine; Internal Medicine; ADMIT Internal Medicine
PROC: 0DN64ZZ Release Stomach, Percutaneous Endoscopic Approach (ICD-10-PCS; principal; 2023-10-15)
DX: K56.51 Intestinal adhesions [bands], with partial obstruction (principal); K91.2 Postsurgical malabsorption, not elsewhere classified; G47.33 Obstructive sleep apnea (adult) (pediatric); R11.2 Nausea with vomiting, unspecified
CPT/HCPCS: J0330; J0690; J1100; J1170; J1885; J2060; J2405; J2550; J2704; J3010; J3480; J7050

== ENCOUNTER 2023-11-04 11:48 | Inpatient (IN) | payer OTHER ==
[~2023-11-04] VITALS: Ht 170.2 cm; Wt 103.6 kg
[2023-11-04] MEDS ORDERED: Ondansetron 4 MG/2 ML VIAL IV ONE ×2 (12:00→13:30)
[2023-11-04] MEDS ORDERED: LR 1,000 ML IV ONE ×2 (12:00→14:00)
[2023-11-04] MEDS ORDERED: HYDROmorphone 0.5 MG/0.5 ML SYRINGE IV PRN ×3 (12:15→16:15)
[2023-11-04 12:45] LABS: BASO # 0.1 K/mm3 (0.0-0.2); BASO % 0.4 % (0.0-2.0); EOS # 0.3 K/mm3 (0.0-0.7); GRAN # 10.3 K/mm3 (1.4-6.5); GRAN % 79.3 % (42.2-75.2); HEMATOCRIT 49.5 % (42.0-52.0); HEMOGLOBIN 17.7 g/dl (13.5-18.0); LYMPH # 1.2 K/mm3 (1.2-3.4); LYMPH % 9.3 % (20.0-51.0); MEAN CELL VOLUME 87 fl (80.0-100.0); MEAN CORPUSCULAR HEMOGLOBIN 31 pg (27-31); MEAN CORPUSCULAR HGB CONC 36 g/dl (33.0-37.0); MEAN PLATELET VOLUME 10.2 fl (7.4-10.4); MONO # 1.1 K/mm3 (0.1-0.6); MONO % 8.7 % (1.7-9.3); PLATELET COUNT 326 K/mm3 (130-400); RED BLOOD COUNT 5.68 M/mm3 (4.20-5.60); REDCELL DISTRIBUTION WIDTH-CV 14.6 % (11.5-14.5)
[2023-11-04 12:50] LABS: ALBUMIN 4.3 gm/dL (3.5-5.0); BILIRUBIN,TOTAL 2.5 mg/dL (0.2-1.2); C-REACTIVE PROTEIN 1.61 mg/dL (0.00-0.50); CALCIUM 9.4 mg/dL (8.4-10.2); CREATININE, serum 0.84 mg/dL (0.72-1.25); POTASSIUM 3.8 mmol/L (3.5-4.5); TOTAL PROTEIN 7.4 gm/dL (6.2-8.1)
[2023-11-04] MEDS ORDERED: Iohexol 300 - 100 ML VIAL IV ONE (13:07)
[2023-11-04] MEDS ORDERED: NS 100 ML IV SCH (13:08)
[2023-11-04] MEDS ORDERED: HYDROmorphone 0.5 MG/0.5 ML SYRINGE IV ONE (13:30)
[2023-11-04] MEDS ORDERED: NORCO 325 MG-51 TAB PO (14:22)
[2023-11-04] MEDS ORDERED: DEPO-TESTOS200 MG/M1 IM (14:24)
[2023-11-04] MEDS ORDERED: SEROQUEL 2525 MG/TAB PO (14:25)
[2023-11-04] MEDS ORDERED: LR 1,000 ML IV SCH ×2 (15:15→16:15)
[2023-11-04] MEDS ORDERED: Ondansetron 4 MG/2 ML VIAL IV PRN ×2 (15:15→16:15)
--- NOTE | 2023-11-04 15:15 | NUR ---
PT UP TO FLOOR AT THIS TIME. VITALS STABLE, NG TO LIS, STEADY GAIT AROUND ROOM, A/O X4, FAMILY AT BEDSIDE, PT REMAINS NPO. WILL CONTINUE TO MONITOR.
[2023-11-04] MEDS ORDERED: LORazepam 2 MG/ML 1 ML VIAL IV PRN (16:15)
[2023-11-04] MEDS ORDERED: Propranolol 10 MG TAB PO PRN (16:30)
[2023-11-04] MEDS ORDERED: Gabapentin 100 MG CAP PO PRN (16:30)
[2023-11-04] MEDS ORDERED: QUEtiapine 25 MG TAB PO PRN (16:30)
[2023-11-04] MEDS ORDERED: Promethazine 25 MG TAB PO PRN (16:30)
[2023-11-04 16:45] VITALS: BP 129/79; PULSE 91; TEMP 97.9
--- NOTE | 2023-11-04 17:29 | NUR ---
DISCUSSED WITH DR. CISNEROS ISSUES WITH PT NG TUBE. LIS UNABLE TO PULL AND REMOVE ANY GASTRIC CONTENT WITH THE 14 BENINESE NG TUBE. VERBAL ORDERS TO REMOVE NG AND PLACE 16 BENINESE NG TUBE.
[2023-11-04 17:40] LABS: COLLECTION METHOD CLEAN CATCH
[2023-11-04 18:02] LABS: PH 6.5 (5.0-8.5); URINE APPEARANCE Clear (CLEAR/HAZY); URINE BLOOD Negative (NEGATIVE); URINE COLOR Yellow (YELLOW); URINE GLUCOSE Negative (NEGATIVE); URINE KETONE Negative (NEGATIVE); URINE NITRATE Negative (NEGATIVE); URINE PROTEIN(semi-quant) Negative (NEGATIVE); URINE UROBILINOGEN 0.2 E.U/dL (0.2-1.0)
[2023-11-04 18:15] LABS: SQUAMOUS EPITHELIAL None Seen /hpf (0-10); URINE BACTERIA None Seen /hpf (NONE SEEN); URINE RBC None Seen /hpf (0-2)
[2023-11-04 18:21] VITALS: BP_SYST 129
--- NOTE | 2023-11-04 18:33 | NUR ---
14 SLOVAK NG REMOVED. 18 SLOVAK NG PLACED. NO ISSUES AT THIS TIME. 700 ML GASTRIC CONTENTS OUTPUT. WILL CONTINUE TO MONITOR.
[2023-11-04 19:17] VITALS: BP 126/80; PULSE 85; TEMP 97.8
--- NOTE | 2023-11-04 19:36 | NUR ---
RECEIVED CHANGE OF SHIFT REPORT FROM DAY SHIFT NURSE. PATIENT RESTING IN BED, NG TO LIS WITH NO FURTHER COMPLAINTS REPORTED AT TIME OF REPORT.
[2023-11-04 21:00] VITALS: BP_SYST 126
[2023-11-04 23:24] VITALS: BP 134/76; PULSE 95; TEMP 98.4
[2023-11-05] VITALS (11 sets, daily range): BP systolic 131–154; BP diastolic 78–92; PULSE 82–88; TEMP 97.7–98.3
--- NOTE | 2023-11-05 07:29 | NUR ---
CHANGE OF SHIFT REPORT GIVEN TO DAY SHIFT NURSE, HADLEY. PATIENT RESTING IN BED DURING THE NIGHT, UP TO BATHROOM NEEDED FOR VOIDING. IV FLUIDS INFUSING WITH NO PROBLEMS DURING THE SHIFT. NG TO LIS PATENT DURING THE NIGHT WITH GREEN OUTPUT OBSERVED IN TUBING. SEE MAR FOR PAIN MEDS GIVEN.
--- NOTE | 2023-11-05 08:44 | NUR ---
PT RESTING IN BED WITH PAIN 6/10 IN ABDOMEN, PAIN MEDICATION PROVIDED PER EMAR. STEADY GAIT AROUND ROOM. NG TO LIS. PT REMAINS NPO. WILL CONTINUE TO MONITOR.
[2023-11-05] MEDS ORDERED: Empagliflozin 25 MG TAB PO SCH (09:00)
--- NOTE | 2023-11-05 10:54 | NUR ---
Assistant Art Director met with patient to discuss discharge planning. His parents, Rubén and Niko are at bedside. Patient lives in [place] with his , Addie (ph#[phone]) and sees Dr. Hook for primary care. Patient gets his medications filled at [facility] pharmacy. Patient is independent with ADLS and is self employed. Patient believes he has DPOA-HC at home that he created a long time ago designating his parents. Patient plans to return home at time of discharge. Discharge Plan: Home
[2023-11-05 11:22] LABS: BASO % 0.5 % (0.0-2.0); EOS # 0.3 K/mm3 (0.0-0.7); GRAN # 3.6 K/mm3 (1.4-6.5); GRAN % 57.2 % (42.2-75.2); HEMATOCRIT 44.9 % (42.0-52.0); LYMPH # 1.6 K/mm3 (1.2-3.4); LYMPH % 25.6 % (20.0-51.0); MEAN CELL VOLUME 89 fl (80.0-100.0); MEAN CORPUSCULAR HGB CONC 35 g/dl (33.0-37.0); MEAN PLATELET VOLUME 9.2 fl (7.4-10.4); MONO # 0.8 K/mm3 (0.1-0.6); MONO % 12.4 % (1.7-9.3); RED BLOOD COUNT 5.06 M/mm3 (4.20-5.60); REDCELL DISTRIBUTION WIDTH-CV 14.6 % (11.5-14.5)
[2023-11-05 11:40] LABS: ALBUMIN 3.8 gm/dL (3.5-5.0); CALCIUM 8.6 mg/dL (8.4-10.2); CREATININE, serum 0.88 mg/dL (0.72-1.25); POTASSIUM 3.8 mmol/L (3.5-4.5); TOTAL PROTEIN 6.5 gm/dL (6.2-8.1)
[2023-11-05 11:47] LABS: HEMOGLOBIN 15.7 g/dl (13.5-18.0); MEAN CORPUSCULAR HEMOGLOBIN 31 pg (27-31); PLATELET COUNT 223 K/mm3 (130-400)
--- NOTE | 2023-11-05 11:53 | NUR ---
DR. MCINTOSH CALLED TO NOTIFY OF PT STATUS AND DELTA CHECK HBG DROP FROM 17.7 TO 15.7. NO NEW ORDERS AT THIS TIME.
--- NOTE | 2023-11-05 19:08 | NUR ---
report received from tawana palmer. pt resting in bed watching tv. pt NG to LIS with brown discharge. pt reports some pain but would like to walk the unit regardless. call light in reach. all needs met at this time.
--- NOTE | 2023-11-05 20:38 | NUR ---
shift assessment complete, see documentation. pt reporting 7/10 abd pain. prn 1mg IV dilaudid administered per orders. pt also reporting nausea. prn 2mg IV zofran administered per orders. pt continues with NG to LIS with brown/green discharge. pt resting in bed. call light in reach. all needs met at this time.
[2023-11-06] VITALS (13 sets, daily range): BP systolic 112–163; BP diastolic 62–99; PULSE 77–86; TEMP 97.7–98.3
--- NOTE | 2023-11-06 03:39 | NUR ---
pt reporting increased abd pain located in the RLQ. prn 1mg dilaudid administered per orders. pt denies nausea. call light in reach. all needs met at this time.
--- NOTE | 2023-11-06 06:19 | NUR ---
pt reports last dose of prn dilaudid relieved his pain. ng with 775 of brown output. NG continues to LIS. call light in reach. all needs met at this time.
[2023-11-06 08:02] LABS: CALCIUM 8.7 mg/dL (8.4-10.2); CREATININE, serum 0.83 mg/dL (0.72-1.25); POTASSIUM 3.7 mmol/L (3.5-4.5)
--- NOTE | 2023-11-06 09:22 | NUR ---
Patient awake, alert and oriented. Denies abdominal pain or nausea currently. Ambulating frequently, passing gas. Did have BM yesterday, no BM so far this AM. Bed in lowest position with call light within reach.
--- NOTE | 2023-11-06 10:00 | NUR ---
NG tube clamped for trial. Will observe for s/s nausea and abdominal pain.
--- NOTE | 2023-11-06 15:11 | NUR ---
Unsuccesful clamping trial - patient reporting abdominal pain and nausea worsening over the past couple hours. Did have one small loose stool but pain and discomfort has not improved since. NG tube hooked up back to LIS, PRNs given as ordered.
--- NOTE | 2023-11-06 18:55 | NUR ---
report received from anabell palmer. pt resting in bed watching tv. NG to LIS with brown discharge. pt reports he is feeling less distended. pt denies pain and nausea. call light in reach. all needs met at this time.
--- NOTE | 2023-11-06 20:59 | NUR ---
shift assessment complete, see documentation. pt reporting increased pain. prn dilaudid administered per orders. pt reporting decrease in abd distention. pt abd is soft and bowel sounds are audible in all quadrants. pt reports some loose stools today. call light in reach. all needs met at this time.
--- NOTE | 2023-11-06 23:10 | NUR ---
pt requesting pain medications for abd pain. prn dilaudid administered per orders at 2227. provided pt relief. pt resting in bed. NG to LIS. call light in reach. all needs met at this time.
[2023-11-07] VITALS (11 sets, daily range): BP systolic 113–147; BP diastolic 74–89; PULSE 78–87; TEMP 97.9–98.8
--- NOTE | 2023-11-07 03:27 | NUR ---
pt reporting increased abd pain. pt requested to only take 1/2 his ordered dilaudid dose and stated "im trying to dose down while staying comfortable". prn 0.5mg IV dilaudid administered per orders. pt resting in bed watching tv. call light in reach. all needs met at this time.
--- NOTE | 2023-11-07 09:18 | NUR ---
SHIFT ASSESSMENT COMPLETE. VSS. PATIENT AWAKE LAYING IN BED WATCHING TV. PATIENT REPORTS BOWL MOVEMENT EARLIER THIS AM AND PASSING SOME GAS. ABD TENDER BUT NO PAIN AT THIS TIME. NG TUBE IN PLACE AND CONNECTED TO LOW INTERMIT SUCTION PATIENT HAS HAD 700ML OUT SINCE ABOUT MID NIGHT LAST NIGHT. PATIENT HAS NO OTHER COMPLAINTS OR REQUEST AT THIS TIME. CALL LIGHT IN REACH.
--- NOTE | 2023-11-07 14:40 | NUR ---
was up and had a shower and now states his abodominal pain/cramping is not calming down, medicated with dilaudid 1mg slow IV
--- NOTE | 2023-11-07 19:01 | NUR ---
PATIENT RESTING IN BED WATCHING TV WITH NO ACUTE DISTRESS NOTED. PATIENT ON ROOM AIR. NG TUBE TO RIGHT NARES DRAINING BROWNISH RED FLUID INTO CANISTER ON WALL WITH LOW INTERMITTEN SUCTION. LR INFUSING INTO LEFT HAND WITH NO COMPLICATIONS NOTED. PATIENT CARE ASSUMED FROM AMY AT THIS TIME. PATIENT REQUESTED ZOFRAN AND VERBALIZED UNDERSTANDING THAT MEDICATION WOULD BE GIVEN. PATIENT DENIES ANY OTHER NEEDS AT THIS TIME. BED IN LOW POSITION WITH WHEELS LOCKED WITH RAILS UP X2 AND CALL LIGHT WITHIN REACH.
--- NOTE | 2023-11-07 19:29 | NUR ---
PATIENT RESTING IN BED WATCHING TV WITH NO ACUTE DISTRESS NOTED. PATIENT ON ROOM AIR. NG TUBE TO RIGHT NARES INTACT, AND DRAINING BROWN REDISH FLUID. ASSESSMENT AND MEDICATION ADMINISTRATION COMPLETED AT THIS TIME. PATIENT TOLERATED WELL. ALL NEEDS MET. BED IN LOW POSITION WITH WHEELS LOCKED WITH RAILS UP X2 AND CALL LIGHT WITHIN RECH.
[2023-11-08] VITALS (13 sets, daily range): BP systolic 121–149; BP diastolic 75–86; PULSE 80–111; TEMP 97.8–98.6
[2023-11-08 07:23] LABS: BASO % 0.5 % (0.0-2.0); EOS # 0.2 K/mm3 (0.0-0.7); EOS % 2.9 % (0.0-4.0); GRAN # 5.4 K/mm3 (1.4-6.5); GRAN % 64.2 % (42.2-75.2); HEMATOCRIT 46.2 % (42.0-52.0); HEMOGLOBIN 16.6 g/dl (13.5-18.0); LYMPH # 1.8 K/mm3 (1.2-3.4); LYMPH % 21.2 % (20.0-51.0); MEAN CELL VOLUME 86 fl (80.0-100.0); MEAN CORPUSCULAR HEMOGLOBIN 31 pg (27-31); MEAN CORPUSCULAR HGB CONC 36 g/dl (33.0-37.0); MEAN PLATELET VOLUME 8.9 fl (7.4-10.4); MONO # 0.9 K/mm3 (0.1-0.6); MONO % 10.6 % (1.7-9.3); PLATELET COUNT 278 K/mm3 (130-400); RED BLOOD COUNT 5.38 M/mm3 (4.20-5.60); REDCELL DISTRIBUTION WIDTH-CV 13.4 % (11.5-14.5)
[2023-11-08 07:51] LABS: ALBUMIN 3.8 gm/dL (3.5-5.0); BILIRUBIN,TOTAL 1.4 mg/dL (0.2-1.2); CALCIUM 9.4 mg/dL (8.4-10.2); CREATININE, serum 0.87 mg/dL (0.72-1.25); POTASSIUM 3.4 mmol/L (3.5-4.5)
--- NOTE | 2023-11-08 08:00 | NUR ---
PATIENT IS A&O. VSS. DENIES PAIN OR NAUSEA HOWEVER, PATIENT WANTS TO STAY AHEAD OF THE NAUSEA AND IS REQUESTING PRN IV ZOFRAN THIS AM, GIVEN. NG TO LIS WITH MOD OUTPUT THAT IS DARK GREEN WITH SEDIMENT. PATIENT ALSO REPORTS LOOSE STOOLS AND STATES HE HAD ANOTHER LOOSE STOOL THIS AM. PASSING FLATUS. ABD IS SOFT, ROUND AND WITH POSITIVE BOWL SOUNDS. IV FLUIDS INFUSING VIA PUMP INTO LEFT HAND IV. HEAD TO TOE ASSESSMENT COMPLETE. SCD'S TO BLE CURRENTLY OFF. PATIENT INDEPENDENT IN ROOM. NO OTHER NEEDS AT THIS TIME.
--- NOTE | 2023-11-08 12:39 | NUR ---
MAKING ROUNDS. PLAN IS TO KEEP NG TO LIS TODAY AND TRY CLAMPING TRIAL TOMORROW. SEE PROVIDER NOTES.
[2023-11-08] MEDS ORDERED: LORazepam 2 MG/ML 1 ML VIAL IV PRN ×2 (17:30)
--- NOTE | 2023-11-08 19:21 | NUR ---
report received from naomi palmer. pt sitting in bed with family at bedside. NG hooked up to LIS with brown discharge. pt denies pain or abd distension. call light in reach. all needs met at this time.
--- NOTE | 2023-11-08 22:46 | NUR ---
pt reporting increased anxiety and nausea. prn ativan and zofran administered per orders. call light in reach. all needs met at this time.
--- NOTE | 2023-11-08 22:52 | NUR ---
shift assessment complete, see documentation. pt ambulated the unit with steady gait. pt continues with brown output from NG to LIS. pt denies pain or discomfort. call light in reach. all needs met at this time.
[2023-11-09] VITALS (12 sets, daily range): BP systolic 121–147; BP diastolic 77–98; PULSE 71–96; TEMP 97.9–98.1
--- NOTE | 2023-11-09 03:53 | NUR ---
pt requesting ativan. 0.25mg IV ativan administered per orders. pt resting in bed. call light in reach. all needs met at this time.
--- NOTE | 2023-11-09 04:43 | NUR ---
pt reporting nausea d/t NG tube. prn zofran administered per orders. prn ativan did relieve pt anxiety. call light in reach. all needs met at this time.
--- NOTE | 2023-11-09 08:48 | NUR ---
PT RESTING IN BED. NG TO LIS PER ORDERS. PT REPORT OVER 1000 MLS OUT OVER NIGHT. 250 MLS IN CANISTER AT SHIFT CHANGE. PT DENIES FURTHER NEEDS. IV TO LFA LR @ 100 MLS/HR.
--- NOTE | 2023-11-09 13:02 | NUR ---
transportation worker met with patient's nurse, Urbano, to determine if there were any concerns for this patient. Urbano expressed patient will return home at time of discharge, no concerns at this time.
[2023-11-09] MEDS ORDERED: Ondansetron 4 MG/2 ML VIAL IV PRN (15:30)
[2023-11-09] MEDS ORDERED: Promethazine 25 MG TAB PO PRN (15:30)
--- NOTE | 2023-11-09 19:06 | NUR ---
report received from haydee palmer. pt walking the unit. NG remains clamped. pt denies pain and nausea. call light in reach. all needs met at this time.
--- NOTE | 2023-11-09 20:34 | NUR ---
shift assessment complete, see documentation. pt NG remains clamped. pt reporting increased nausea. prn phenergan tablet administered per orders. pt denies pain. pt abd is increasing in distension but pt would like to continue clamping for now. call light in reach. all needs met at this time.
--- NOTE | 2023-11-09 22:30 | NUR ---
pt reporting nausea still. prn zofran administered per orders. call light in reach. all needs met at this time.
--- NOTE | 2023-11-09 23:40 | NUR ---
pt reported increased abd pain. pt stated he began dry heaving and NG is now hooked up to LIS. brown output continues through the tube. prn dilaudid administered per orders. pt now resting and stating he feels much better. abd still remains rounded and firm as of now. call light in reach. all needs met at this time.
[2023-11-10] VITALS (12 sets, daily range): BP systolic 117–144; BP diastolic 70–91; PULSE 57–79; TEMP 97.5–98.3
--- NOTE | 2023-11-10 02:02 | NUR ---
pt continues with increased pain and nausea. he states prn is making him feel better just not lasting. NG continues to LIS with brown output. prn dilaudid and zofran administered per orders. call light in reach. all needs met at this time.
[2023-11-10] MEDS ORDERED: Pantoprazole 40 MG in NS 10 ML IV SCH (10:32)
[2023-11-10] MEDS ORDERED: Glucagon 1 MG VIAL IM PRN (12:45)
[2023-11-10] MEDS ORDERED: Dextrose (Glucose) 15 GM (4 x 3.75 GM) Chewable TABLET PACK PO PRN (12:45)
[2023-11-10] MEDS ORDERED: Dextrose 50% Water 25 GM/50 ML SYRINGE IV PRN (12:45)
[2023-11-10 14:14] LABS: CALCIUM 9.5 mg/dL (8.4-10.2); CREATININE, serum 0.97 mg/dL (0.72-1.25); MAGNESIUM 1.9 mg/dL (1.6-2.6); PHOSPHOROUS 3.8 mg/dL (2.3-4.7); POTASSIUM 3.5 mmol/L (3.5-4.5); TOTAL PROTEIN 7.2 gm/dL (6.2-8.1)
[2023-11-10] MEDS ORDERED: LR 1,000 ML IV SCH (16:00)
[2023-11-10] MEDS ORDERED: Multivitamins 1 VIAL,Folic Acid 1 MG,Thiamine 200 MG in TPN (Clinimix-E 8%/14%) 1,000 ML IV SCH (16:00)
[2023-11-10] MEDS ORDERED: Insulin Aspart (NovoLOG) SQ SCH (18:00)
[2023-11-10] MEDS ORDERED: NS IV SCH (19:00)
[2023-11-10] MEDS ORDERED: ERYTHROMYCIN LACTOBIONATE IV SCH (19:00)
--- NOTE | 2023-11-10 19:05 | NUR ---
report received from haydee palmer. pt resting in bed with family at bedside. pt denies pain and states he feels much better than last night. call light in reach. all needs met at this time.
--- NOTE | 2023-11-10 22:50 | NUR ---
shift assessment complete, see documentation. pt denies pain. pt reporting increased nausea, prn zofran administered and provided relief. TPN running to JACOB PICC at 42ml/hr. Lipids running to JACOB at 21ml/hr. pt tolerating well. pt ambulating unit without issue. pt abd is soft and bowel sounds active in all quadrants. NG to LIS with brown output. call light in reach. all needs met at this time.
--- NOTE | 2023-11-10 23:07 | NUR ---
pt having increased anxiety and restless legs. pt attempted to walk the halls with no relief. prn ativan administered per orders. call light in reach. all needs met at this time.
[2023-11-11] VITALS (12 sets, daily range): BP systolic 109–147; BP diastolic 64–92; PULSE 58–75; TEMP 97.7–98.3
[2023-11-11 09:30] LABS: CALCIUM 8.5 mg/dL (8.4-10.2); CREATININE, serum 0.79 mg/dL (0.72-1.25); MAGNESIUM 1.6 mg/dL (1.6-2.6); PHOSPHOROUS 2.8 mg/dL (2.3-4.7); POTASSIUM 3.7 mmol/L (3.5-4.5)
--- NOTE | 2023-11-11 09:31 | NUR ---
PATIENT ALERT AND ORIENTED X4. VSS. PATIENT HERE FOR SBO. NG TO LIS WITH BROWN OUTPUT. PATIENT DENIES ANY PAIN AT THIS TIME. PATIENT DENIES ANY NAUSEA, BUT WOULD LIKE TO RECEIVE A DOSE THIS MORNING TO STAY ON TOP OF THE NAUSEA. TPN INFUSING AT 42ML/HOUR THROUGH PICC LINE. LR RUNNING AT 100ML/HOUR THROUGH PICC LINE. BOTH LUMENS FLUSH WELL WITH GOOD BLOOD RETURN. PATIENT ON ROOM AIR, INDEPENDENT IN THE ROOM. NO FURTHER NEEDS. CALL LIGHT IN REACH.
[2023-11-11] MEDS ORDERED: ERYTHROMYCIN LACTOBIONATE IV SCH (10:00)
[2023-11-11] MEDS ORDERED: NS IV SCH (10:00)
[2023-11-11] MEDS ORDERED: Multivitamins 1 VIAL,Folic Acid 1 MG,Thiamine 200 MG in TPN (Clinimix-E 8%/14%) 1,000 ML IV SCH (16:00)
[2023-11-11] MEDS ORDERED: LR 1,000 ML IV SCH (16:00)
--- NOTE | 2023-11-11 16:47 | NUR ---
NEW BAGS OF TPN/LIPIDS HUNG AND INFUSING THROUGH RED LUMEN. BOTH CAPS CHANGED TODAY. PATIENT DENIES ANY PAIN. PATIENT CLAMPED NG TUBE AT 1530. PATIENT HAS HAD A LITTLE OVER 200ML OUTPUT THROUGH NG TUBE SO FAR THIS SHIFT.
--- NOTE | 2023-11-11 20:00 | NUR ---
PT UP ABOUT IN ROOM INDEPENDENTLY. PT ABLE TO CLAMP AND UNCLAMP NG WHEN UP. PT DENEIS NAUSEA AT THIS TIME. TPN INFUSING @ 52CC/HR/ LIPIDS INFUSING @ 21CC/HR. LR AT 30CC/HR. NO COMPLAINTS AT THIS TIME.
--- NOTE | 2023-11-11 23:20 | NUR ---
SEE MAR FOR ZOFRAN AND ATIVAN GIVEN IV. NG DRAINAGE 100CC SINCE SHIFT CHANGE. O2 STARTED FOR THE NIGHT. PT ADMIT TO MINIMAL NAUSEA. RLQ BS VERY FAINT. OTHER QUAD THERE WAS NO BS. ABD SOFT. PT REPORTED VERY SMALL MUCOUS STOOL. PT FLUSHED. CALL LIGHTIN REACH.
[2023-11-12] VITALS (10 sets, daily range): BP systolic 123–145; BP diastolic 79–96; PULSE 69–84; TEMP 97.7–98.5
--- NOTE | 2023-11-12 05:55 | NUR ---
ACCUCHECK AT 0600 WAS 87 PER PCT. 200CC TOTAL THIS SHIFT FROM NG- DARK GREEN.
[2023-11-12 06:51] LABS: CALCIUM 9.3 mg/dL (8.4-10.2); CREATININE, serum 0.83 mg/dL (0.72-1.25); MAGNESIUM 1.9 mg/dL (1.6-2.6); PHOSPHOROUS 3.8 mg/dL (2.3-4.7); POTASSIUM 3.2 mmol/L (3.5-4.5)
--- NOTE | 2023-11-12 09:55 | NUR ---
PATIENT ALERT AND ORIENTED X4. VSS. PATIENT HERE FOR RECURRENT SBO. PATIENT DENIES ANY PAIN THIS MORNING. PATIENT REPORTS HAVING BM THIS MORNING. NG TO LIS WITH DARK GREEN OUTPUT. PATIENT REPORTS INTERMITTENT NAUSEA. PICC TO RIGHT UPPER ARM, DOUBLE LUMEN WITH TPN RUNNING AT 52ML/HOUR IN PURPLE LUMEN, LR RUNNING AT 30ML/HOUR IN RED LUMEN. NO FURTHER NEEDS. CALL LIGHT IN REACH.
[2023-11-12] MEDS ORDERED: Potassium Chloride 100 ML IV SCH (10:00)
[2023-11-12] MEDS ORDERED: TPN (Clinimix-E 8%/14%) 1,000 ML IV SCH (11:28)
--- NOTE | 2023-11-12 15:59 | NUR ---
elevator worker met with donaldo Clarke, regarding discharge planning. Tricia was not certain if patient will need TPN when discharging home yet. SCARLETT contacted [facility] to determine if they do TPN and accept patient's insurance. They do not accept patient's insurance. SCARLETT was notified patient is in between insurances right now. Discharge plan: Home
[2023-11-12] MEDS ORDERED: Multivitamins 1 VIAL,Folic Acid 1 MG,Thiamine 200 MG in TPN (Clinimix-E 8%/14%) 1,000 ML IV SCH (16:00)
--- NOTE | 2023-11-12 20:00 | NUR ---
PT SITTING IN BED VISITING WITH DAUGHTER. PT DENIES NAUSEA. PT RELATES HAS HAD SEVERAL VERY SM BM- LOOSE MUCOUS/ BROWN. PT HAS BEEN FLUSHING. ASKED PT TO NOT FLUSH NEXT TIME. AFTER DAUGHTER LEFT, PT GOING TO TAKE A SHOWER. SECURED PICC LINE FROM GETTING WET. FLUIDS ON STANDBY. GAVE ZOFRAN FOR PREVENTION. PT INDEPENDENT. CALL LIGHT INREACH. NO NEEDS AT THIS TIME.
[2023-11-13] VITALS (8 sets, daily range): BP systolic 116–138; BP diastolic 75–92; PULSE 66–71; TEMP 97.6–98.1
[2023-11-13 06:49] LABS: CALCIUM 9.2 mg/dL (8.4-10.2); CREATININE, serum 0.82 mg/dL (0.72-1.25); PHOSPHOROUS 3.8 mg/dL (2.3-4.7); POTASSIUM 3.8 mmol/L (3.5-4.5)
[2023-11-13] MEDS ORDERED: TPN (Clinimix-E 8%/14%) 1,000 ML IV SCH (08:53)
--- NOTE | 2023-11-13 15:10 | NUR ---
PT DISCHARGED PER DR. DICKENS'S ORDERS WITH PICC LINE IN PLACE; EDUCATION PROVIDED TO PT ON CARE AND PT WILL FOLLOW UP WITH [facility] FOR DRESSING CHANGES AND CAP CHANGES
== END 2023-11-13 14:50 | disposition home or self-care (01) | DRG 389 ==
LOC: COL.ER 11:48 → SURG 13:51
PROVIDERS: Family Medicine; Surgery; ADMIT Surgery
PROC: 02HV33Z Insertion of Infusion Device into Superior Vena Cava, Percutaneous Approach (ICD-10-PCS; principal; 2023-11-10)
DX: K56.609 Unspecified intestinal obstruction, unspecified as to partial versus complete obstruction (principal); E44.0 Moderate protein-calorie malnutrition; R19.7 Diarrhea, unspecified; D72.829 Elevated white blood cell count, unspecified; Z88.6 Allergy status to analgesic agent; Z79.899 Other long term (current) drug therapy; Z23 Encounter for immunization; Z68.36 Body mass index [BMI] 36.0-36.9, adult
CPT/HCPCS: A9270; C1751; C9113; J1170; J1364; J2060; J2405; J3411; J3475; J3480; J7120; Q9967

== ENCOUNTER 2023-12-03 21:02 | Emergency (ER) | payer OTHER ==
[~2023-12-03] VITALS: Ht 170.2 cm; Wt 104.5 kg
[~2023-12-03 21:02] MED LIST changes: +SEROQUEL 2525 MG/TAB PO
[2023-12-03 21:10] VITALS: TEMP 98.1
[2023-12-03] MEDS ORDERED: Ondansetron 4 MG/2 ML VIAL IV ONE (21:30)
[2023-12-03 21:58] LABS: BASO # 0.1 K/mm3 (0.0-0.2); BASO % 0.6 % (0.0-2.0); EOS # 0.6 K/mm3 (0.0-0.7); EOS % 6.3 % (0.0-4.0); GRAN % 55.8 % (42.2-75.2); HEMOGLOBIN 14.3 g/dl (13.5-18.0); LYMPH # 2.7 K/mm3 (1.2-3.4); LYMPH % 29.8 % (20.0-51.0); MEAN CELL VOLUME 90 fl (80.0-100.0); MEAN CORPUSCULAR HEMOGLOBIN 31 pg (27-31); MEAN CORPUSCULAR HGB CONC 34 g/dl (33.0-37.0); MEAN PLATELET VOLUME 9.1 fl (7.4-10.4); MONO # 0.6 K/mm3 (0.1-0.6); MONO % 6.6 % (1.7-9.3); PLATELET COUNT 238 K/mm3 (130-400); RED BLOOD COUNT 4.66 M/mm3 (4.20-5.60); REDCELL DISTRIBUTION WIDTH-CV 14.6 % (11.5-14.5)
[2023-12-03] MEDS ORDERED: Iohexol 300 - 100 ML VIAL IV ONE (22:03)
[2023-12-03] MEDS ORDERED: NS 50 ML IV ONE (22:04)
[2023-12-03 22:15] LABS: ALBUMIN 3.8 gm/dL (3.5-5.0); BILIRUBIN,TOTAL 0.5 mg/dL (0.2-1.2); CALCIUM 9.3 mg/dL (8.4-10.2); CREATININE, serum 0.76 mg/dL (0.72-1.25); POTASSIUM 3.8 mmol/L (3.5-4.5); TOTAL PROTEIN 6.5 gm/dL (6.2-8.1)
[2023-12-03] MEDS ORDERED: HYDROmorphone 0.5 MG/0.5 ML SYRINGE IV ONE (22:30)
[2023-12-03 23:44] VITALS: BP 153/99; PULSE 89
== END 2023-12-03 23:44 | disposition home or self-care (01) ==
LOC: COL.ER 21:02
PROVIDERS: Nurse Practitioner Primary Care
DX: R10.84 Generalized abdominal pain (principal); R11.0 Nausea; R14.0 Abdominal distension (gaseous)
CPT/HCPCS: J0780; J1170; J2405; Q9967

== ENCOUNTER 2024-01-03 09:00 | Outpatient (RCR) | payer OTHER ==
[2023-12-16 15:20] VITALS: BP 142/97; PULSE 94; TEMP 98
[2023-12-17 09:22] VITALS: BP 138/91; PULSE 92; TEMP 98.5
[2023-12-27 09:00] VITALS: BP 128/83; PULSE 78; TEMP 98
[2023-12-29 10:54] VITALS: BP 148/84; PULSE 100; TEMP 98.1
[~2024-01-03] VITALS: Ht 170.2 cm; Wt 109.0 kg
[~2024-01-03 09:00] MED LIST changes: +1/2 NS 1,000 ML IV SCH; +LR 1,000 ML IV PRN; +Lidocaine PF 2% (20 MG/ML) 5 ML VIAL ONE; +Midazolam 2 MG/2 ML VIAL ONE; +NS 10 ML IV ONE; +NS Flush 10 ML SYRINGE (PICC Line - 10 mL Daily if not in use) ICA SCH; +NS Flush 10 ML SYRINGE (PICC Line - 10 mL PRN) ICA; +NS Flush 10 ML SYRINGE BID ICA SCH; +NS Flush 10 ML SYRINGE PRN ICA; +Ondansetron 4 MG/2 ML VIAL ONE; +fentaNYL 50 MCG/ML 2 ML VIAL ONE
== END 2024-01-09 | disposition home or self-care (01) ==
LOC: EUO
DX: K56.609 Unspecified intestinal obstruction, unspecified as to partial versus complete obstruction (principal)
CPT/HCPCS: J0690; J2250; J2405; J2704; J3010; J7120

== ENCOUNTER 2024-02-10 09:03 | Inpatient (IN) | payer OTHER ==
[2024-02-10] VITALS (11 sets, daily range): BP systolic 111–138; BP diastolic 67–77; PULSE 69–96; TEMP 97.9–98.9
[~2024-02-10] VITALS: Ht 170.2 cm; Wt 111.0 kg
[~2024-02-10 09:03] MED LIST changes: -1/2 NS 1,000 ML IV SCH; -LR 1,000 ML IV PRN; -Lidocaine PF 2% (20 MG/ML) 5 ML VIAL ONE; -Midazolam 2 MG/2 ML VIAL ONE; -NS 10 ML IV ONE; -NS Flush 10 ML SYRINGE (PICC Line - 10 mL Daily if not in use) ICA SCH; -NS Flush 10 ML SYRINGE (PICC Line - 10 mL PRN) ICA; -NS Flush 10 ML SYRINGE BID ICA SCH; -NS Flush 10 ML SYRINGE PRN ICA; -Ondansetron 4 MG/2 ML VIAL ONE; -fentaNYL 50 MCG/ML 2 ML VIAL ONE
[2024-02-10] MEDS ORDERED: HYDROmorphone 0.5 MG/0.5 ML SYRINGE IV ONE ×2 (09:30→10:30)
[2024-02-10] MEDS ORDERED: Ondansetron 4 MG/2 ML VIAL IV ONE ×2 (09:30→10:30)
[2024-02-10] MEDS ORDERED: NS 1,000 ML IV ONE (09:30)
[2024-02-10] MEDS ORDERED: Iohexol 300 - 100 ML VIAL IV ONE (10:05)
[2024-02-10] MEDS ORDERED: NS 100 ML IV SCH (10:06)
[2024-02-10 10:08] LABS: BASO # 0.1 K/mm3 (0.0-0.2); BASO % 0.6 % (0.0-2.0); EOS # 0.2 K/mm3 (0.0-0.7); GRAN % 84.9 % (42.2-75.2); HEMATOCRIT 56.6 % (42.0-52.0); HEMOGLOBIN 19.5 g/dl (13.5-18.0); LYMPH # 1.4 K/mm3 (1.2-3.4); LYMPH % 7.6 % (20.0-51.0); MEAN CELL VOLUME 91 fl (80.0-100.0); MEAN CORPUSCULAR HEMOGLOBIN 31 pg (27-31); MEAN CORPUSCULAR HGB CONC 35 g/dl (33.0-37.0); MEAN PLATELET VOLUME 8.8 fl (7.4-10.4); MONO % 5.5 % (1.7-9.3); PLATELET COUNT 268 K/mm3 (130-400); RED BLOOD COUNT 6.22 M/mm3 (4.20-5.60); REDCELL DISTRIBUTION WIDTH-CV 15.1 % (11.5-14.5)
[2024-02-10 10:31] LABS: ALBUMIN 4.7 g/dL (3.5-5.0); BILIRUBIN,TOTAL 0.9 mg/dL (0.2-1.2); C-REACTIVE PROTEIN 0.15 mg/dL (0.00-0.50); CALCIUM 10.4 mg/dL (8.4-10.2); POTASSIUM 3.8 mEq/L (3.5-4.5); TOTAL PROTEIN 8.5 g/dl (6.2-8.1)
[2024-02-10] MEDS ORDERED: PHENERGAN 25 TA25 MG PO (11:21)
[2024-02-10] MEDS ORDERED: NS 1,000 ML IV SCH (11:30)
[2024-02-10] MEDS ORDERED: HYDROmorphone 0.5 MG/0.5 ML SYRINGE IV PRN (11:30)
[2024-02-10] MEDS ORDERED: Ondansetron 4 MG/2 ML VIAL IV PRN ×2 (11:30→16:30)
[2024-02-10] MEDS ORDERED: LR 1,000 ML IV SCH ×2 (16:30→19:30)
[2024-02-10] MEDS ORDERED: D5W 1,000 ML IV SCH (16:30)
[2024-02-10] MEDS ORDERED: diphenhydrAMINE 50 MG/ML 1 ML VIAL IV PRN (16:30)
[2024-02-10] MEDS ORDERED: Naloxone 0.4 MG/ML VIAL IV PRN (16:30)
[2024-02-10] MEDS ORDERED: Phenol 1.4% Spray 180 ML BOTTLE MM PRN (16:30)
[2024-02-10] MEDS ORDERED: diphenhydrAMINE 25 MG CAP PO PRN (16:30)
[2024-02-10] MEDS ORDERED: HYDROmorphone PCA 0.2 MG/ML 30 ML VIAL IV SCH (16:30)
--- NOTE | 2024-02-10 19:02 | NUR ---
PUT NG TUBE IN PT RIGHT NOSTRIL. 16 POLISH AT 54 CM.
[2024-02-10] MEDS ORDERED: Sennosides/Docusate 8.6-50 MG TAB PO SCH (21:00)
--- NOTE | 2024-02-10 21:15 | NUR ---
PT A&O X4 LAYING IN BED. VSS ON ROOM AIR. NG TO RT NARE TO LIS WITH GREEN OUTPUT. PT RATING ABD PAIN 4/5 OUT OF 10, PT STATES NG PLACEMENT HELPED WITH A LOT OF THE PAIN. PT ON DILAUDID AUDIT PRACTICE INTERN, INFUSING TO PORT ON RT CHEST. PT REQUESTING ZOFRAN, GAVE PER MAR. DENIES OTHER NEEDS AT THIS TIME. CALL LIGHT IN REACH
--- NOTE | 2024-02-10 23:30 | NUR ---
PT AMBULATING HALLS INDEPENDENTLY
[2024-02-11] VITALS (15 sets, daily range): BP systolic 121–138; BP diastolic 68–78; PULSE 69–83; TEMP 97.8–98.3
--- NOTE | 2024-02-11 05:25 | NUR ---
PT RESTING IN BED. GAVE PRN ZOFRAN PER DEC. PT REPORTS FEELING LIKE SPRING FITTER HELPER PUMP & NG ARE MANAGING HIS PAIN. NG OUTPUT NOW DARK GREEN IN COLOR. DENYING FURTHER NEEDS. CALL LIGHT IN REACH
--- NOTE | 2024-02-11 06:50 | NUR ---
up independently in bathroom, bedside shift report received from ARISTEO Bah, out of bathroom and will ambulate in hansen, denies needs
[2024-02-11 08:00] LABS: BASO % 0.3 % (0.0-2.0); EOS # 0.4 K/mm3 (0.0-0.7); EOS % 4.9 % (0.0-4.0); GRAN # 4.7 K/mm3 (1.4-6.5); GRAN % 63.1 % (42.2-75.2); HEMATOCRIT 43.7 % (42.0-52.0); LYMPH # 1.7 K/mm3 (1.2-3.4); LYMPH % 22.3 % (20.0-51.0); MEAN CELL VOLUME 90 fl (80.0-100.0); MEAN CORPUSCULAR HEMOGLOBIN 31 pg (27-31); MEAN CORPUSCULAR HGB CONC 35 g/dl (33.0-37.0); MEAN PLATELET VOLUME 9.2 fl (7.4-10.4); MONO # 0.7 K/mm3 (0.1-0.6); MONO % 9.1 % (1.7-9.3); PLATELET COUNT 209 K/mm3 (130-400); RED BLOOD COUNT 4.87 M/mm3 (4.20-5.60); REDCELL DISTRIBUTION WIDTH-CV 14.7 % (11.5-14.5)
[2024-02-11 08:04] LABS: HEMOGLOBIN 15.3 g/dl (13.5-18.0)
[2024-02-11 08:17] LABS: ALBUMIN 3.4 g/dL (3.5-5.0); BILIRUBIN,TOTAL 1.7 mg/dL (0.2-1.2); CALCIUM 8.7 mg/dL (8.4-10.2); CREATININE, serum 0.81 mg/dL (0.72-1.25); POTASSIUM 3.4 mEq/L (3.5-4.5); TOTAL PROTEIN 5.9 g/dl (6.2-8.1)
--- NOTE | 2024-02-11 09:00 | NUR ---
in bed looking at TV, full assessment completed, NG remains in place to LIS, has PROBATE CLERK and he states this is managing his pain, denies needs at this time
--- NOTE | 2024-02-11 11:22 | NUR ---
D: Initial visit: Research Spec stopped by room on rounds. A: Pt was resting and content with in the room. Pt has no needs right now. Both appreciated the visit. P: Research Spec informed pt that if he needed anything from the buckle and button maker area to let his nurse know. Research Spec will follow up as needed.
--- NOTE | 2024-02-11 14:14 | NUR ---
grey roll worker met with patient to discuss discharge planning. Pt reports to live with his , Maritza [phone] and children in [place]. He sees Dr. Hook and obtains medications from [facility] with no difficulties. He is independent with ADLS and uses a CPAP for DME. Pt reports he has a DPOA-HC at home listing his . Pt has no further needs and reports to be feeling better. Discharge Plan: home
--- NOTE | 2024-02-11 14:47 | NUR ---
has been up and about in room and hansen independently, NG remains at LIS and patient will disconnect as he needs
--- NOTE | 2024-02-11 15:24 | NUR ---
report given to ARISTEO Cook
--- NOTE | 2024-02-11 16:15 | NUR ---
THIS NURSE TOOK OVER CARE. REPORT RECIEVED. PATIENT UP WALKING THE HALLS HAS NO REQUEST OR CONCERNS AT THIS TIME.
[2024-02-11] MEDS ORDERED: Ketorolac 30 MG/ML VIAL IV ONE (21:15)
[2024-02-12] VITALS (13 sets, daily range): BP systolic 125–144; BP diastolic 48–86; PULSE 69–82; TEMP 97.8–98.2
--- NOTE | 2024-02-12 10:01 | NUR ---
PT LAYING IN BED, ALERT AND ORIENTEDX4. NO COMPLAINTS OF PAIN AT THIS TIME. PT HAS LITTLE NAUSEA "BUT NOT BAD. PT STATES HE HAS NO USED THE BRICK DROPPER PUMP SINCE YESTERDAY. NG DRAINING BROWN DRAINAGE. ASSESSED. CALL LIGHT WITHIN REACH.
[2024-02-13] VITALS (15 sets, daily range): BP systolic 123–139; BP diastolic 28–82; PULSE 60–79; TEMP 97.7–98.1
--- NOTE | 2024-02-13 08:39 | NUR ---
PT COMPLAINING OF SINUS HEADACHE FROM NG TUBE. CALLED DR CRISTINA AND GOT ORDER FOR TORADOL
[2024-02-13] MEDS ORDERED: Ketorolac 15 MG/ML VIAL IV PRN (08:45)
--- NOTE | 2024-02-13 10:06 | NUR ---
PT IS RESTING IN BED, ALERT AND ORIENTEDX4. NO COMPLAINTS OF ABDOMINAL PAIN. RATE HEADACHE 6/10 FROM NG TUBE. GAVE TORADOL. PAIN WENT DOWN TO 1/10. PT IS HAVING NAUSEA. GAVE ZOFRAN. PT CLAMPED NG TUBE. WILL REEVALUATE NG AT NOON.
--- NOTE | 2024-02-13 12:52 | NUR ---
PT TOLERATED NG CLAMPING TRIAL THIS MORNING. THIS NURSE PULLED OUT NG TUBE. PT HAS NOT STARTED CLEAR LIQUIDS YET.
[2024-02-14 04:00] VITALS: BP 118/72; PULSE 66; TEMP 97.6
[2024-02-14 06:49] LABS: CREATININE, serum 0.84 mg/dL (0.72-1.25); MAGNESIUM 1.9 mg/dL (1.6-2.6); PHOSPHOROUS 3.3 mg/dL (2.3-4.7); POTASSIUM 3.6 mEq/L (3.5-4.5)
--- NOTE | 2024-02-14 07:05 | NUR ---
PT LAYING IN BED, ALERT AND ORIENTED X4. NO PAIN OR NAUSEA AT THIS TIME. PT HAS BEEN PASSING GAS. PT WILL BE ADVANCING DIET THIS MORNING TO SEE IF HE TOLERATES IT. IV ANTIBIOTICS RUNNING. ASSESSED, CALL LIGHT WITHIN REACH.
[2024-02-14 07:46] VITALS: BP 130/83; PULSE 54; TEMP 98
[2024-02-14 08:00] VITALS: BP_SYST 130
[2024-02-14 08:01] VITALS: BP 130/83; PULSE 54
--- NOTE | 2024-02-14 10:47 | NUR ---
PT TOLERATED FULL LIQUD AND LOW FIBER DIET. PT HAD DISCHARGE ORDERS TO GO HOME. TOOK OUT PT PORT ACCESS. WENT OVER DISCHARGE INSTRUCTIONS WITH PT. THIS NURSE ESCORTED PT OUT WITH MOM TO CAR.
== END 2024-02-14 10:50 | disposition home or self-care (01) | DRG 390 ==
LOC: COL.ER 09:03 → SURG 10:51 → COL.ER 10:51 → SURG 15:32 → MEDICAL 15:32 → SURG 02-11 13:25
PROVIDERS: Emergency Medicine; Surgery; ADMIT Surgery
DX: K56.699 Other intestinal obstruction unspecified as to partial versus complete obstruction (principal); I10 Essential (primary) hypertension; E78.1 Pure hyperglyceridemia; N40.0 Benign prostatic hyperplasia without lower urinary tract symptoms; E11.9 Type 2 diabetes mellitus without complications; D72.829 Elevated white blood cell count, unspecified; Z87.442 Personal history of urinary calculi; Z90.89 Acquired absence of other organs; Z90.49 Acquired absence of other specified parts of digestive tract; Z88.6 Allergy status to analgesic agent; Z88.8 Allergy status to other drugs, medicaments and biological substances; Z23 Encounter for immunization
CPT/HCPCS: G0378; J1170; J1364; J1885; J2405; J7030; J7120; Q9967

== ENCOUNTER 2024-04-19 14:57 | Outpatient (CLI) | payer BC ==
[~2024-04-19] VITALS: Ht 170.2 cm; Wt 112.3 kg
[2024-04-19] MEDS ORDERED: LR 1,000 ML IV SCH (15:15)
[2024-04-19 15:28] VITALS: BP 151/83; PULSE 102; TEMP 98.4
== END 2024-04-19 17:30 | disposition home or self-care (01) ==
LOC: EUO 14:57
DX: K59.89 Other specified functional intestinal disorders (principal)
CPT/HCPCS: J1644; J7120

== ENCOUNTER 2024-07-11 11:24 | Observation (INO) | payer BC ==
[2024-07-11] VITALS (7 sets, daily range): BP systolic 103–133; BP diastolic 59–88; PULSE 18–86; TEMP 97.5–98.2
[~2024-07-11] VITALS: Ht 170.2 cm; Wt 108.5 kg
[~2024-07-11 11:24] MED LIST changes: +DEPO-TESTOS100 MG/ML IM; +DILAUDID 2MG TAB2 MG PO; +VITAMIN B11000 MCG/M IM
--- NOTE | 2024-07-11 12:03 | NUR ---
PATIENT ARRIVED TO FLOOR DIRECT ADMIT.VSS. PATIENT ABD DISTENED AND G TUBE HAS OUTPUT OF 450ML OF CLEAR FLUID. PATIENT STATES PAIN 8/10 REPORTED TO HOSPITALIST, AWAITING ORDERS. PATIENT AMBULATING IND. ADMISSION , ASSESSMENT, AND MED REC COMPLETED.
[2024-07-11] MEDS ORDERED: HYDROmorphone 0.5 MG/0.5 ML SYRINGE IV PRN (12:30)
[2024-07-11] MEDS ORDERED: Ondansetron 4 MG/2 ML VIAL IV PRN (12:30)
[2024-07-11] MEDS ORDERED: LR 1,000 ML IV SCH (12:30)
[2024-07-11] MEDS ORDERED: LOFIBRA160 MG PO (12:42)
[2024-07-11] MEDS ORDERED: GLUCOPHAGE XR500 M1 PO (12:43)
[2024-07-11] MEDS ORDERED: SUNOSI150 MG PO (12:43)
[2024-07-11] MEDS ORDERED: QUESTRAN LI4 GM/5 GM PO (13:12)
[2024-07-11] MEDS ORDERED: Promethazine 25 MG TAB PO PRN ×2 (13:15→14:15)
[2024-07-11] MEDS ORDERED: TESTOPEL PELLET75 MG SQ (13:18)
[2024-07-11 13:50] LABS: BASO % 0.5 % (0.0-2.0); EOS # 0.2 K/mm3 (0.0-0.7); EOS % 2.2 % (0.0-4.0); GRAN # 5.2 K/mm3 (1.4-6.5); GRAN % 63.7 % (42.2-75.2); HEMATOCRIT 49.9 % (42.0-52.0); HEMOGLOBIN 17.4 g/dl (13.5-18.0); LYMPH # 2.1 K/mm3 (1.2-3.4); LYMPH % 25.8 % (20.0-51.0); MEAN CELL VOLUME 89 fl (80.0-100.0); MEAN CORPUSCULAR HEMOGLOBIN 31 pg (27-31); MEAN CORPUSCULAR HGB CONC 35 g/dl (33.0-37.0); MEAN PLATELET VOLUME 8.6 fl (7.4-10.4); MONO # 0.6 K/mm3 (0.1-0.6); MONO % 7.3 % (1.7-9.3); PLATELET COUNT 230 K/mm3 (130-400); RED BLOOD COUNT 5.59 M/mm3 (4.20-5.60); REDCELL DISTRIBUTION WIDTH-CV 14.4 % (11.5-14.5)
[2024-07-11 14:07] LABS: CALCIUM 9.2 mg/dL (8.4-10.2); CREATININE, serum 0.9 mg/dL (0.72-1.25); POTASSIUM 3.5 mEq/L (3.5-4.5)
--- NOTE | 2024-07-11 20:00 | NUR ---
PATIENT IS A&O. VSS. C/O ABD PAIN/CRAMPING AND REQUESTING SOMETHING FOR PAIN. GAVE PRN IV DILAUDID AND PRN IV ZOFRAN, SEE MAR. ABD IS ROUND, SOFT AND WITH HYPO BOWL SOUNDS NOTED. G-TUBE TO LIS WITH MOD AMOUNT OF LIGHT GREEN GASTRIC OUTPUT. IV FLUIDS INFUSING INTO RIGHT CHEST PORTACATH. TOLERATING CLEARS. HEAD TO TOE ASSESSMENT COMPLETE. INDEPENDENT IN ROOM. CALL LIGHT IN REACH. NO OTHER NEEDS AT THIS TIME.
[2024-07-12] VITALS (11 sets, daily range): BP systolic 115–132; BP diastolic 62–78; PULSE 58–71; TEMP 97.5–98.4
--- NOTE | 2024-07-12 09:58 | NUR ---
Initial visit; Patient thanked Business Management Analyst for introducing herself and offering Spiritual Care. Patient declined prayer or spirityal care at this time.
--- NOTE | 2024-07-12 10:03 | NUR ---
SHIFT ASSESSMENT COMPLETE. VSS. PATIENT UP TO RECLINER WATCHING TV. ALL MORNING MEDS GIVEN ORDERED. PATIENT HAS NO REQUEST AT THIS TIME. G TUBE IN PLACE AND ATTACHED TO LOW INT. SUCTIONING W/ GRAAN DRAINAGE. PATIENT STATES ABD DOES FEEL MORE DECOMPRESSED THIS AM. PATIENT IND AND WALKING HALLS. CALL LIGHT IN REACH
--- NOTE | 2024-07-12 14:33 | NUR ---
Social work student met with Pt this morning. Pt lives in [place] with his , Eamon (p# [phone]), and their four children. Pt uses [facility] has his pharamacy and his PCP is Dr. Hook. SW asked about a DPOA which Pt already has in place. Pt gets around independently, uses a CPAP, and has a gas tube. Pt asked for folley bags, which SW will talk to his nurse about. Discharge plan: Home
[2024-07-13] VITALS (8 sets, daily range): BP systolic 112–144; BP diastolic 66–84; PULSE 55–59; TEMP 97.6–97.9
--- NOTE | 2024-07-13 03:41 | NUR ---
pt lying in bed, alert and oriented x4. denies chest pain and shortness of breath. pt reports having small bowel movements around 1900, G-tube clamped by pt at this time. reporting 6/10 pain per request norco given. pt tolerated PO pain med and able to ambulate briefly around the unit. ambulating with steady gait. Portacath in place with LR running at 125 ml/hr. pt connected g-tube to LIS. reporting mild nausea and pain, per request zofran and dilaudid given. upon reassessment pt resting in bed with eyes close. call light within reach. pt has no further needs, questions or concerns at this time
--- NOTE | 2024-07-13 08:00 | NUR ---
SHIFT ASSESSMENT COMPLETE. VSS. PATIENT AWAKE IN BED AWAITING CLEARS TRAY FOR BREAKFAST. PATIENT HAS GTUBE CLAMPED AND STATES NO N/V AND ABD SOFT. ALL MORNING MEDS GIVEN ORDERED. PATIENT STATES PAIN 4-5/10 PAIN MEDS GIVEN ORDERED. PATIENT HAS NO OTHER REQUEST AT THIS TIME. CALL LIGHT IN REACHA ND PATIENT IND IN ROOM AND WALKING THE HALLS
== END 2024-07-13 13:20 | disposition home or self-care (01) ==
LOC: SURG 11:24
PROVIDERS: ADMIT Surgery
DX: K56.609 Unspecified intestinal obstruction, unspecified as to partial versus complete obstruction (principal); Z93.1 Gastrostomy status
CPT/HCPCS: G0378; G0379; J1171; J1364; J2405; J7120

== ENCOUNTER 2024-07-19 11:00 | Outpatient (CLI) | payer BC ==
[~2024-07-19 11:00] MED LIST changes: +GLUCOPHAGE XR500 M1 PO; +LOFIBRA160 MG PO; +QUESTRAN LI4 GM/5 GM PO; +SUNOSI150 MG PO; +TESTOPEL PELLET75 MG SQ
[2024-07-19] MEDS ORDERED: LR 1,000 ML IV PRN (11:45)
== END 2024-07-19 13:54 ==
LOC: EUO 11:00
DX: K59.89 Other specified functional intestinal disorders (principal)
CPT/HCPCS: J7120

== ENCOUNTER 2024-07-27 15:27 | Outpatient (CLI) | payer BC ==
[~2024-07-27] VITALS: Ht 170.2 cm; Wt 110.9 kg
[2024-07-27] MEDS ORDERED: LR 1,000 ML IV PRN (15:45)
[2024-07-27 15:52] VITALS: BP 143/80; PULSE 80; TEMP 98.8
== END 2024-07-27 17:53 | disposition home or self-care (01) ==
LOC: EUO 15:27
DX: K59.89 Other specified functional intestinal disorders (principal)
CPT/HCPCS: J7120

== ENCOUNTER 2024-07-31 11:04 | Outpatient (CLI) | payer BC ==
[~2024-07-31] VITALS: Ht 170.2 cm; Wt 109.7 kg
[2024-07-31 11:24] VITALS: BP 119/80; PULSE 77; TEMP 98.7
[2024-07-31] MEDS ORDERED: GENOTROPIN MIN SQ (11:24)
[2024-07-31] MEDS ORDERED: LR 1,000 ML IV PRN (11:45)
== END 2024-07-31 12:43 | disposition home or self-care (01) ==
LOC: EUO 11:04
DX: Z45.2 Encounter for adjustment and management of vascular access device (principal)
CPT/HCPCS: J7120